=== PATIENT | female | born 1950 | race Caucasian/White ===

== ENCOUNTER 2020-05-13 11:56 | Outpatient (CLI) | payer MEDICARE, MEDICAID, SELFPAY ==
[2020-05-13 12:41] LABS: Hemoglobin A1C 5.5 % (<5.7)
[2020-05-13 12:47] LABS: Blood Urea Nitrogen 17 mg/dL (7-17); Calcium 9.2 mg/dL (8.4-10.2); Carbon Dioxide 29 mmol/L (22-30); Chloride 107 mmol/L (98-107); Estimated Glomerular Filt Rate > 60; Glucose 94 mg/dL (65-105); Sodium 141 mmol/L (137-145)
[2020-05-13 13:20] LABS: Vitamin D 25 Hydroxy 76.7 ng/mL
== END 2020-05-13 11:57 | disposition home or self-care (01) ==
LOC: ANHLAB 11:59
PROVIDERS: PCP Internal Medicine; Visit Provider Internal Medicine
DX: R73.9 Hyperglycemia, unspecified (principal); Z79.899 Other long term (current) drug therapy
CPT/HCPCS: 36415; 80048; 82306; 83036

== ENCOUNTER 2021-11-26 12:40 | Emergency (ER) | payer MEDICARE, MEDICAID, SELFPAY ==
--- NOTE | ~2021-11-26 | CT_ITS ---
EXAMINATION: CT abdomen pelvis w con DATE: 11/26/2021 18:39 INDICATION: Epigastric abdominal pain. Nausea and vomiting. Diarrhea. TECHNIQUE: Computed tomography (CT) of the abdomen and pelvis was performed with 100 mL Omnipaque 350 intravenous contrast. Automated exposure control and iterative reconstruction technique were employe d. The dose-length product was 485.51 mGy-cm. COMPARISON: CT abdomen and pelvis 11/27/2019 FINDINGS: The visualized portions of the lung bases demonstrate mild atelectasis. No pleural effusion . The heart size is normal. There are coronary artery calcifications. No pericardial effusion. There is a large sliding hiatal hernia. There are bilateral breast implants. There is diffuse hepatic steat osis. Pneumobilia is noted, likely secondary to central atrophy. There are changes of cholecystectomy . The spleen, pancreas, and adrenal glands are normal. There is cortical thinning of the kidneys. Pel maine floor relaxation is noted. There is diverticulosis of the colon without evidence of diverticuliti s. The appendix is not visualized. There are no pathologically enlarged lymph nodes. There is no free intraperitoneal fluid. There is severe lower lumbar spondylosis. IMPRESSION: 1. Large sliding hiatal hernia. 2. Diffuse hepatic steatosis. Reviewed, dictated and finalized at location A. ER AUT[employer]
--- NOTE | ~2021-11-26 | XR_ITS ---
EXAMINATION: XR chest 2V DATE: 11/26/2021 18:43 INDICATION: Epigastric abdominal pain. Nausea and vomiting and diarrhea. TECHNIQUE: Frontal and lateral views of the chest were obtained. COMPARISON: CT abdomen and pelvis 11/26/21 FINDINGS: There is mild atelectasis in the lower lung zones. No pleural effusion or pneumothorax. The heart size is normal. There is a large hiatal hernia. Breast implants are noted. Surgical clips in t he right upper quadrant are likely from cholecystectomy. IMPRESSION: 1. Mild atelectasis in the lower lung zones. 2. Large hiatal hernia. Reviewed, dictated and finalized at location A. N OPERATOR
[2021-11-26 13:33] VITALS: BP 151/85; PULSE 87; RESP 18; TEMP 36.9; O2SAT 97
[2021-11-26 17:26] VITALS: BP 158/105; PULSE 100; RESP 20; TEMP 36.7; O2SAT 96
--- NOTE | 2021-11-26 17:46 | ED.GENADULT ---
HPI - General Adult General Chief complaint: Nausea/Vomiting/Diarrhea Stated complaint: Vomiting Time Seen by Provider: 11/26/21 17:37 History of Present Illness HPI narrative: Patient is a 71-year-old female who comes into the ED today complaining of abdominal pain along with nausea, vomiting and diarrhea for the last 1 day. Also having a headache. Denies any fevers or any other symptoms or concerns. Notes a previous history of similar symptoms a few times before due to dehydration according to the patient. Denies any alcohol use or illicit drug use. She is not a diabetic. Related Data Allergies Allergy/AdvReac Type Severity Reaction Status Date / Time aripiprazole Allergy Mild Unknown Verified 11/27/19 16:32 pregabalin Allergy Mild Unknown Verified 11/27/19 16:32 cimetidine Allergy Unknown Unknown Verified 11/27/19 16:32 lansoprazole Allergy Unknown Unknown Verified 11/27/19 16:32 omeprazole Allergy Unknown Unknown Verified 11/27/19 16:32 pantoprazole Allergy Unknown Unknown Verified 11/27/19 16:32 ranitidine Allergy Unknown Unknown Verified 11/27/19 16:32 diphenhydramine AdvReac Mild Other Verified 11/27/19 16:32 nitrofurantoin AdvReac Mild Unknown Verified 11/27/19 16:32 oxybutynin AdvReac Unknown Verified 11/27/19 16:32 Review of Systems Constitutional: Constitutional: Reports as per HPI, Denies fever(s), Denies night sweats and Denies weakness Cardiovascular: Cardiovascular: Denies chest pain, Denies edema, Denies leg edema, Denies dyspnea and Denies orthopnea Respiratory: Respiratory: Denies cough and Denies dyspnea Gastrointestinal: Gastrointestinal: Reports abdominal pain, Denies constipation, Reports diarrhea, Reports nausea and Reports vomiting Comments: See HPI Musculoskeletal: Musculoskeletal: Denies abnormal gait, Denies back pain, Denies numbness and Denies tingling Neurologic: Denies Abnormal speech present, Denies abnormal gait, Denies numbness, Denies tingling and Denies weakness Comments: See HPI for headaches Psychiatric: Psychiatric: Denies homicidal ideation and Denies suicidal ideation [facility] Past Medical History Medical History (Updated 11/26/21 @ 19:29 by Aleks Lance PA-C) Fibromyalgia Gastroesophageal reflux Exam Const: General: cooperative, healthy appearing, comfortable, no acute distress, well developed, alert, awake and Physically active Orientation/consciousness: patient oriented x3 HENMT: Head: normal to inspection, normocephalic and atraumatic Ears: external ears normal General nose exam: Normal external nose present Other: Oropharynx clear. Eyes: Pupils: Equal, round and reactive pupils present EOM: EOMs intact bilaterally Neck: Neck: normal visual inspection Chest: Chest palpation & inspection: normal inspection of the chest and no tenderness Resp: Effort & Inspection: normal respiratory effort and able to speak in complete sentences Auscultation: clear to auscultation bilaterally Cardio: Rate: regular rate Rhythm: regular rhythm GI: Inspection: normal to inspection GI Palp: Yes abdominal tenderness (Tender to palpate over right upper quadrant, epigastric and LUQ) : General: Yes no CVA tenderness Back/Spine/Pelvis: Back: no CVA tenderness Skin: General skin exam: normal color and no rashes or lesions noted Lesions: no lesions Neuro: General: patient oriented x3, no focal motor deficits and CN's II-XI intact bilaterally Cranial nerves: Yes Equal, round and reactive pupils present Speech: No Abnormal speech present Extrem: General: normal to inspection and full ROM Psych: Appearance: grossly normal and well kempt Mental Status: mental status grossly normal Speech and movement: Normal speech and movement present Affect: normal affect Thought process: Normal thought process present Course Course Emergency Course: 1800 I am seeing this patient in a triage box as the emergency department is full of admits during this COVID-[address] sc
[2021-11-26 17:50] LABS: Basophils Percent Auto 0.6 % (0.2-1.2); Eosinophils Absolute Auto 0.1 K/mm3 (0-0.3); Eosinophils Percent Auto 1.1 % (0-4.4); Hemoglobin 16.1 g/dL (12.0-15.0); Immature Granulocyte Absolute 0.02 K/mm3 (0.00-0.031); Immature Granulocyte Percent A 0.4 % (0-0.5); Lymphocytes Absolute Auto 1.06 K/mm3 (0.9-3.2); Lymphocytes Percent Auto 22.4 % (18.3-44.2); Mean Corpuscular HGB Conc 32.9 g/dl (32-36); Mean Corpuscular Hemoglobin 29.8 pg (26-34); Mean Corpuscular Volume 90.7 fl (80-100); Mean Platelet Volume 10.2 fl (7.4-10.4); Monocytes Absolute Auto 0.5 K/mm3 (0.1-0.6); Monocytes Percent Auto 10.8 % (2.6-8.5); Neutrophils Absolute Auto 3.1 K/mm3 (1.3-6.7); Neutrophils Percent Auto 64.7 % (45.5-73.1); Platelet Count Result 160 k/mm3 (150-375); Red Cell Distribution Width 12.7 % (11.5-14.5); White Blood Count 4.7 K/mm3 (4.5-10.0)
[2021-11-26 17:59] LABS: Alanine Aminotransferase 38 U/L (4-35); Albumin Level 4.9 g/dL (3.5-5.1); Alkaline Phosphatase 107 U/L (38-126); Anion Gap 13 mmol/L (8-16); Aspartate Amino Transferase 77 U/L (14-36); Bilirubin,Total 0.9 mg/dL (0.2-1.3); Blood Urea Nitrogen 17 mg/dL (7-17); Calcium 10.2 mg/dL (8.4-10.2); Carbon Dioxide 27 mmol/L (22-30); Chloride 102 mmol/L (98-107); Estimated CRCL calculation 44 ml/min; Estimated Glomerular Filt Rate 55; Glucose 169 mg/dL (65-110); Potassium 4.1 mmol/L (3.4-5.0); Sodium 142 mmol/L (137-145)
[2021-11-26 18:26] LABS: Lipase 71 U/L (23-300)
[2021-11-26 18:36] LABS: Add Urine Microscopic? YES; Appearance Urine Clear (Clear); Bacteria Urine 3+ /hpf; Bilirubin Urine Negative (Negative); Blood Urine Negative (Negative); Color Urine Yellow (Yellow); Glucose Urine UA Negative (Negative); Ketones Urine Negative (Negative); Leukocyte Esterase Ur Trace LEU/UL (Negative); Mucus Urine Rare /lpf; Nitrate Urine Positive (Negative); Protein Urine Negative (Negative); Squamous Epithelial Cell Urine Moderate /hpf (Few); Urobilinogen Urine Negative mg/dL (<2.0)
[2021-11-26 19:40] VITALS: BP 145/100; PULSE 88; RESP 14; TEMP 36.7; O2SAT 97
[2021-11-26] MEDS: FAMOTIDINE 20 MG/2 ML VIAL IV PUSH (20:01)
[2021-11-26] MEDS: ONDANSETRON INJ 4 MG/2 ML VIAL IV PUSH (20:01)
[2021-11-26] MEDS: CEPHALEXIN 500 MG CAPSULE PO (20:02)
== END 2021-11-26 20:25 | disposition home or self-care (01) ==
PROVIDERS: Physician Assistant Medical; Emergency Provider Emergency Medicine; PCP Internal Medicine
DX: N39.0 Urinary tract infection, site not specified (principal); R11.2 Nausea with vomiting, unspecified; M79.7 Fibromyalgia; K21.9 Gastro-esophageal reflux disease without esophagitis; K44.9 Diaphragmatic hernia without obstruction or gangrene; K76.0 Fatty (change of) liver, not elsewhere classified
CPT/HCPCS: 36415; 71046; 74177; 80053; 81001; 83690; 85025; 87077; 87086; 87186; 96374; 96375; 99284; A9270; J2405; Q9967

== ENCOUNTER 2022-01-26 10:08 | Outpatient (CLI) | payer MEDICARE, MEDICAID, SELFPAY | END 2022-01-26 10:09 | disposition home or self-care (01) | PROVIDERS: PCP Internal Medicine; Visit Provider Internal Medicine | DX: H91.93 Unspecified hearing loss, bilateral (principal) | CPT/HCPCS: 99199 ==

== ENCOUNTER 2022-04-19 19:08 | Observation (INO) | payer MEDICARE, MEDICAID, SELFPAY ==
--- NOTE | ~2022-04-19 | NM_ITS ---
EXAMINATION: NM adele stress w perfusion DATE: 04/20/2022 15:59 INDICATION: Chest pain. TECHNIQUE: Rest images were obtained following intravenous administration of 10 mCi Tc99m tetrofosmin (Myoview). The patient was infused intravenously with Lexiscan (regadenoson). Then, 29.45 mCi Tc99m tetrofosmin (Myoview) was administered intravenously, and stress images were obtained. Data was recon structed into short axis and horizontal and vertical long axis SPECT images. Gated SPECT images were also obtained. COMPARISON: CT abdomen and pelvis 11/26/2021 FINDINGS: There is prominent breast attenuation. There is no definite reversible or fixed perfusion a bnormality to suggest ischemia or infarction. There is no segmental wall motion abnormality. Left v entricular ejection fraction measures >70%. IMPRESSION: 1. No definite ischemia or infarct. 2. Normal left ventricular ejection fraction measuring >70%. Reviewed, dictated and finalized at location A.
--- NOTE | ~2022-04-19 | XR_ITS ---
EXAMINATION: XR chest 2V 04/19/2022 19:30 INDICATION: Chest pain. Shortness of breath. PROCEDURE: 2 view chest COMPARISON: 11/26/2021 FINDINGS: The lungs are clear. The cardiomediastinal silhouette is within normal limits. There are no pleural effusions. There is no pneumothorax suspected. There is a moderate size hiatal hernia. T here are partially calcified breast implants. IMPRESSION: 1: NO ACUTE CARDIOPULMONARY DISEASE. Reviewed, dictated and finalized at location A.
--- NOTE | 2022-04-19 19:16 | ECG_ITS ---
Measurements Intervals Patriot Rate: 92 P: 35 NV: 180 QRS: 30 QRSD: 78 T: 55 QT: 361 QTc: 449 Interpretive Statements SINUS RHYTHM BASELINE ARTIFACT- I, III, AVR, AVL, AVF NORMAL ECG Electronically Signed On 04-19-2022 20:41:37 CDT by Colton Thomas D.O.
[2022-04-19 19:17] VITALS: BP 198/81; PULSE 93; RESP 18; TEMP 37; O2SAT 99
[2022-04-19 19:24] VITALS: O2SAT 98
[2022-04-19 19:29] LABS: Basophils Percent Auto 0.5 % (0.2-1.2); Eosinophils Absolute Auto 0.1 K/mm3 (0-0.3); Eosinophils Percent Auto 1.8 % (0-4.4); Hematocrit 36.1 % (37.0-47.0); Hemoglobin 11.9 g/dL (12.0-15.0); Immature Granulocyte Absolute 0.04 K/mm3 (0.00-0.031); Lymphocytes Absolute Auto 1.52 K/mm3 (0.9-3.2); Lymphocytes Percent Auto 38.6 % (18.3-44.2); Mean Corpuscular Hemoglobin 30.5 pg (26-34); Mean Corpuscular Volume 92.6 fl (80-100); Mean Platelet Volume 10.1 fl (7.4-10.4); Monocytes Absolute Auto 0.4 K/mm3 (0.1-0.6); Monocytes Percent Auto 9.4 % (2.6-8.5); Neutrophils Absolute Auto 1.9 K/mm3 (1.3-6.7); Neutrophils Percent Auto 48.7 % (45.5-73.1); Platelet Count Result 144 k/mm3 (150-375); Red Cell Distribution Width 13.1 % (11.5-14.5); White Blood Count 3.9 K/mm3 (4.5-10.0)
--- NOTE | 2022-04-19 19:35 | ED.CHESTPAIN ---
HPI - Chest Pain General Chief Complaint: Chest Pain Stated Complaint: cp left sided with sob Time Seen by Provider: 04/19/22 19:21 History of Present Illness HPI narrative: Patient is a 72-year-old female complaining of chest pain, left chest, tightness, 5 out of 10, nonradiating, intermittent worse when she lays down and exertion, accompanied by shortness of breath started approximately 1 month ago. Patient denies any abdominal pain, nausea, vomiting, diaphoresis, fever or chills. Related Data Allergies Allergy/AdvReac Type Severity Reaction Status Date / Time aripiprazole Allergy Mild Unknown Verified 11/27/19 16:32 pregabalin Allergy Mild Unknown Verified 11/27/19 16:32 cimetidine Allergy Unknown Unknown Verified 11/27/19 16:32 lansoprazole Allergy Unknown Unknown Verified 11/27/19 16:32 omeprazole Allergy Unknown Unknown Verified 11/27/19 16:32 pantoprazole Allergy Unknown Unknown Verified 11/27/19 16:32 ranitidine Allergy Unknown Unknown Verified 11/27/19 16:32 diphenhydramine AdvReac Mild Other Verified 11/27/19 16:32 nitrofurantoin AdvReac Mild Unknown Verified 11/27/19 16:32 oxybutynin AdvReac Unknown Verified 11/27/19 16:32 Review of Systems Review of Systems: All systems reviewed & are unremarkable except as noted in HPI and below Constitutional: Constitutional: Denies body ache(s), Denies chills, Denies excessive sweating, Denies fatigue, Denies fever(s), Denies headache(s), Denies lethargy, Denies malaise, Denies weakness and Denies weight loss Eyes: Eyes: Denies blurry vision, Denies change in vision and Denies loss of vision ENT: Denies dizziness, Denies ear discharge, Denies headache(s), Denies lip swelling, Denies epistaxis, Denies nasal congestion, Denies neck pain, Denies throat swelling and Denies tongue swelling Cardiovascular: Cardiovascular: Denies diaphoresis, Denies rapid heart rate, Denies edema, Denies irregular heart rhythm, Denies lightheadedness and Denies palpitations Respiratory: Respiratory: Denies chest congestion, Denies cough and Denies hemoptysis Gastrointestinal: Gastrointestinal: Denies abdominal pain, Denies melena, Denies hematochezia, Denies diarrhea, Denies nausea, Denies vomiting and Denies hematemesis Musculoskeletal: Musculoskeletal: Denies abnormal gait, Denies deformity, Denies joint swelling, Denies limited range of motion, Denies neck pain and Denies numbness Neurologic: Denies Abnormal speech present, Denies abnormal gait, Denies confusion, Denies dizziness, Denies headache(s), Denies focal weakness, Denies loss of vision, Denies numbness, Denies Other visual disturbances, Denies Sensory deficit (Neuro) and Denies weakness Psychiatric: Psychiatric: Denies confusion, Denies depression, Denies auditory hallucinations, Denies homicidal ideation and Denies suicidal ideation Endocrine: Endocrine: Denies cold intolerance, Denies excessive sweating, Denies fatigue, Denies heat intolerance and Denies palpitations Hematologic/Lymphatic: Hematologic/Lymphatic: Denies easy bleeding and Denies easy bruising Allergic/Immunologic: Allergic/Immunologic: Denies lip swelling, Denies throat swelling and Denies tongue swelling PMFSH Past Medical History Medical History (Updated 04/19/22 @ 21:04 by Giorgi Gomes MD) Fibromyalgia Gastroesophageal reflux Comments Past medical history: None Family history: Negative for coronary artery disease or SD Social history: Non-smoker no EtOH or drug use Exam Const: General: cooperative, healthy appearing, comfortable, no acute distress, well developed, alert and awake; No confusion Orientation/consciousness: oriented to person, oriented to place, oriented to time, patient oriented x3 and No confusion Limitations: no limitations HENMT: Head: normal to inspection, normocephalic and atraumatic Ears: hearing grossly normal bilaterally, TM normal on the right and TM normal on the left General nose exam: Normal external nose present, Normal nares presen
[2022-04-19 19:38] LABS: Alanine Aminotransferase 17 U/L (6-35); Albumin Level 3.7 g/dL (3.5-5.1); Alkaline Phosphatase 97 U/L (38-126); Anion Gap 8 mmol/L (8-16); Aspartate Amino Transferase 38 U/L (14-36); Bilirubin,Total 0.6 mg/dL (0.2-1.3); Blood Urea Nitrogen 18 mg/dL (7-17); Calcium 8.6 mg/dL (8.4-10.2); Carbon Dioxide 24 mmol/L (22-30); Chloride 110 mmol/L (98-107); Estimated CRCL calculation 49 ml/min; Estimated Glomerular Filt Rate > 60; Glucose 148 mg/dL (65-110); Lipase 191 U/L (23-300); Potassium 3.5 mmol/L (3.4-5.0); Sodium 142 mmol/L (137-145)
[2022-04-19 19:40] LABS: INR 1.1; Partial Thromboplastin Time 30.7 SECONDS (22.3-36.8); Prothrombin Time 13.5 Seconds (11.1-14.7)
[2022-04-19] MEDS: ASPIRIN 81 MG CHEWABLE TABLET 324 MG PO (19:48)
[2022-04-19 19:49] LABS: Troponin I < 0.012 ng/mL (0.000-0.034)
--- NOTE | 2022-04-19 19:52 | PC.NURSE ---
called lab and spoke to Nilson at 1951 to add on a D dimer and BNP
[2022-04-19 19:58] LABS: D Dimer 0.31 ug/mL (<0.48)
[2022-04-19 20:06] VITALS: BP 167/82; PULSE 86; RESP 20; O2SAT 95
[2022-04-19 20:13] LABS: NT Pro B Type Natriuretic Pept 62 pg/mL (5-100)
[2022-04-19 21:15] VITALS: BP 150/74; PULSE 76; RESP 20; O2SAT 97
--- NOTE | 2022-04-19 22:29 | PM.IMHP ---
H&P: HPI History of Present Illness Date/Time: Patient was placed observation status for expected length of stay less than 23 hours for management, will plan to re-evaluate tomorrow for improvement. 04/19/22 22:29 Chief Complaint: Chest pain Narrative: Ms. Oakes is a 72-year-old female who presented emergency room with complaints of chest pain that started this afternoon. Patient states she was lying on her couch and she had a sharp pain above her left breast and when she got up and walked the pain went away. Patient states the pain lasted for less than 5 minutes, but she is unsure of exactly how long it did last. Patient denies any associated shortness of breath, nausea, vomiting, or diaphoresis. Patient states the pain did not radiate to any other area. Patient states that she has also had shortness of breath ?for a while?. Patient states that she believes it has been approximately 1 month and she has seen her primary care provider for this problem. Patient states that her primary care provider did do an EKG and blood work and she is to have other workup performed, but she cannot recall what she has to have done at this time. It is patient states that she typically has dyspnea exertion. Patient denies any cough, fever, chills, or sputum production. Patient states she was a previous smoker for approximately 10 years she smoked 3 packs cigarettes a day. Patient states she does have a known history of hypertension, dyslipidemia, chronic back pain, and ADHD. Review of Systems Review of Systems: A 12 point review of systems was completed patient all pertinent positive and negative per HPI the remainder are unremarkable. [facility] Past Medical History Medical History (Updated 04/19/22 @ 22:36 by Ami Neal APRN) ADHD Dyslipidemia Fibromyalgia Gastroesophageal reflux Hypertension Surgical History Surgical History (Updated 04/19/22 @ 22:32 by Ami Neal APRN) History of appendectomy History of bilateral carpal tunnel release History of cholecystectomy History of partial hysterectomy Family History Family History (Updated 04/19/22 @ 22:33 by Ami Neal APRN) Sibling Cerebrovascular accident Social History Social History (Updated 04/19/22 @ 22:33 by Ami Neal APRN) Smoking packs per day: 3 Smoking cigarettes per day: 60.0 Years smoked: 10 Smoking pack-years: 30.00 Smoking status: Former smoker Meds Home Medications and Allergies Home Medications Medication Instructions Recorded Confirmed Type ondansetron 4 mg disintegrating 4 mg PO Q8H PRN nausea and 11/27/19 Rx tablet vomiting 3 days #10 tabs cefpodoxime 200 mg tablet 200 mg PO Q12H #14 tabs 11/26/21 Rx famotidine 20 mg tablet (Pepcid) 20 mg PO BID PRN abdominal pain 11/26/21 Rx #10 tabs ondansetron HCl 4 mg tablet 4 mg PO Q6H PRN nausea and 11/26/21 Rx (Zofran) vomiting #14 tabs Allergies Allergy/AdvReac Type Severity Reaction Status Date / Time aripiprazole Allergy Mild Unknown Verified 11/27/19 16:32 pregabalin Allergy Mild Unknown Verified 11/27/19 16:32 cimetidine Allergy Unknown Unknown Verified 11/27/19 16:32 lansoprazole Allergy Unknown Unknown Verified 11/27/19 16:32 omeprazole Allergy Unknown Unknown Verified 11/27/19 16:32 pantoprazole Allergy Unknown Unknown Verified 11/27/19 16:32 ranitidine Allergy Unknown Unknown Verified 11/27/19 16:32 diphenhydramine AdvReac Mild Other Verified 11/27/19 16:32 nitrofurantoin AdvReac Mild Unknown Verified 11/27/19 16:32 oxybutynin AdvReac Unknown Verified 11/27/19 16:32 Vital Signs Vital Signs - 24 hr 04/19/22 19:17 04/19/22 19:24 04/19/22 20:06 Temperature 37.0 C Pulse Rate 93 86 Respiratory Rate 18 20 Blood Pressure 198/81 H 167/82 H Pulse Oximetry 99 98 95 Oxygen Delivery Room Air Room Air 04/19/22 21:15 Temperature Pulse Rate 76 Respiratory Rate 20 Blood Pressure 150/74 H Pulse Oximetry 97 Oxygen Delivery
[2022-04-19 22:37] LABS: Troponin I < 0.012 ng/mL (0.000-0.034)
[2022-04-19 22:46] VITALS: BP 164/84; PULSE 78; RESP 18; TEMP 36.4; O2SAT 100
[2022-04-19 22:47] VITALS: BMI 32.6
--- NOTE | 2022-04-19 22:49 | ADMGEN ---
This patient, Neida Oakes, was admitted to IMU Room 202-01. Patient/family oriented to hospital policies and general routines including ID bracelet, bed and alarms, visiting hours, pain management, procedures, bathroom and other care routines, personal items, smoking policy, room service/diet, and visiting hours. Information on how to activate the Rapid Response Team has been discussed. Patient/Family are encouraged to report perceived risks to care and to ask questions if they do not understand what they are told or what they should do.
[2022-04-20] VITALS (16 sets, daily range): BP systolic 131–178; BP diastolic 59–85; PULSE 68–93; RESP 15–20; TEMP 36.1–36.7; O2SAT 96–100
[2022-04-20 01:54] LABS: Troponin I < 0.012 ng/mL (0.000-0.034)
[2022-04-20 05:00] LABS: Basophils Percent Auto 0.6 % (0.2-1.2); Eosinophils Absolute Auto 0.1 K/mm3 (0-0.3); Eosinophils Percent Auto 2.5 % (0-4.4); Hematocrit 34.2 % (37.0-47.0); Hemoglobin 11.1 g/dL (12.0-15.0); Immature Granulocyte Absolute 0.04 K/mm3 (0.00-0.031); Immature Granulocyte Percent A 1.1 % (0-0.5); Lymphocytes Absolute Auto 1.63 K/mm3 (0.9-3.2); Lymphocytes Percent Auto 45.4 % (18.3-44.2); Mean Corpuscular HGB Conc 32.5 g/dl (32-36); Mean Corpuscular Hemoglobin 30.6 pg (26-34); Mean Corpuscular Volume 94.2 fl (80-100); Mean Platelet Volume 10.2 fl (7.4-10.4); Monocytes Absolute Auto 0.4 K/mm3 (0.1-0.6); Monocytes Percent Auto 11.4 % (2.6-8.5); Neutrophils Absolute Auto 1.4 K/mm3 (1.3-6.7); Platelet Count Result 129 k/mm3 (150-375); Red Blood Count 3.63 M/mm3 (4.2-5.4); Red Cell Distribution Width 13.2 % (11.5-14.5); White Blood Count 3.6 K/mm3 (4.5-10.0)
[2022-04-20 05:10] LABS: Hemoglobin A1C 5.2 % (<5.7)
[2022-04-20 05:11] LABS: Alanine Aminotransferase 14 U/L (6-35); Albumin Level 3.1 g/dL (3.5-5.1); Alkaline Phosphatase 82 U/L (38-126); Anion Gap 5 mmol/L (8-16); Aspartate Amino Transferase 32 U/L (14-36); Bilirubin,Total 0.7 mg/dL (0.2-1.3); Blood Urea Nitrogen 16 mg/dL (7-17); Calcium 8.2 mg/dL (8.4-10.2); Carbon Dioxide 26 mmol/L (22-30); Chloride 111 mmol/L (98-107); Estimated CRCL calculation 49 ml/min; Estimated Glomerular Filt Rate > 60; Glucose 111 mg/dL (65-110); Magnesium 2.1 mg/dL (1.6-2.3); Sodium 142 mmol/L (137-145)
[2022-04-20 08:09] LABS: Folic Acid > 20.0 ng/mL (2.76->20)
--- NOTE | 2022-04-20 08:12 | EST_ITS ---
Patient Info Name: Neida Oakes Age: 72 years : 1950 Gender: Female Ht: 62 in Wt: 178 lbs BSA: 1.91 m2 HR: 63 bpm BP: 147 / 87 mmHg Heart Rhythm: Sinus Rhythm Exam Date: 04/20/2022 2:44 PM Exam Location: [facility] Stress Patient Status: Outpatient Admit Date: 04/19/2022 Staff Ordering Physician: Nir Richey MD Attending Provider: Lyndsey Ziegler DO Exercise Technologist: Gema Forrester CT Nurse: ramon santana Exam Type: CA stress adele w NM Study Info Indications R07.9 - Chest pain, unspecified A regadenoson stress test was performed. Summary 1. Normal sinus rhythm - normal ECG. 2. No abnormal ST/T wave changes with exercise. 3. Clinically and electrocardiographically unremarkable Lexiscan stress test. 4. Myocardial perfusion imaging results to be dictated by Radiology. Protocol: Lexiscan Stress ECG Details Stage: REST Duration (min): 0 min : 50 sec HR (bpm): 66 SBP (mmHg): 147 DBP (mmHg): 87 Stage: REST Duration (min): 5 min : 46 sec HR (bpm): 71 SBP (mmHg): 147 DBP (mmHg): 87 Stage: STAGE 1 Duration (min): 1 min : 0 sec HR (bpm): 92 SBP (mmHg): 155 DBP (mmHg): 72 Stage: RECOVERY Duration (min): 1 min : 0 sec HR (bpm): 97 SBP (mmHg): 155 DBP (mmHg): 72 Stage: RECOVERY Duration (min): 2 min : 0 sec HR (bpm): 96 SBP (mmHg): 155 DBP (mmHg): 72 Stage: RECOVERY Duration (min): 3 min : 0 sec HR (bpm): 95 SBP (mmHg): 176 DBP (mmHg): 74 Stage: RECOVERY Duration (min): 3 min : 9 sec HR (bpm): 95 SBP (mmHg): 176 DBP (mmHg): 74 Rest HR: 71 bpm Peak HR: 98 bpm Rest Sys BP: 147 mmHg Peak Sys BP: 176 mmHg Max Pred HR: 148 bpm % Max Pred HR: 66 % Target HR: 126 bpm Max RPP: 17,248 bpm*mmHg BP Response: Normal blood pressure response Cardiac Symptoms: Shortness of breath Total Time: 1 min : 0 sec Rest Sow BP: 87 mmHg Peak Sow BP: 74 mmHg Total Dose: 0.4 mg Resting ECG Normal sinus rhythm - normal ECG. Stress ECG No abnormal ST/T wave changes with exercise. Report Signatures
[2022-04-20] MEDS: GABAPENTIN 300 MG CAPSULE 600 MG PO ×3 (09:30→17:20)
[2022-04-20] MEDS: lisinopriL 20 MG TABLET PO (09:31)
[2022-04-20] MEDS: ASPIRIN 81 MG CHEWABLE TABLET PO (09:31)
[2022-04-20] MEDS: ATORVASTATIN 10 MG TABLET PO (09:31)
[2022-04-20] MEDS: MELOXICAM 7.5 MG TABLET 15 MG PO (09:31)
[2022-04-20] MEDS: FLUoxetine HCL 10 MG CAPSULE PO (09:31)
[2022-04-20] MEDS: ENOXAPARIN 40 MG/0.4 ML SYRINGE SUB-Q (09:33)
--- NOTE | 2022-04-20 11:00 | PHAR ---
The patient's home med of Rabeprazole 20 mg tablet,delayed release (DR/EC) has been verified.
--- NOTE | 2022-04-20 12:50 | PM.IMPN ---
Progress Note: A&P Assessment and Plan (1) Chest pain: Code(s): R07.9 - Chest pain, unspecified Status: Acute (2) Shortness of breath: Code(s): R06.02 - Shortness of breath Status: Acute (3) Hypertension: Code(s): I10 - Essential (primary) hypertension Status: Acute (4) Dyslipidemia: Code(s): E78.5 - Hyperlipidemia, unspecified Status: Acute (5) Fibromyalgia: Code(s): M79.7 - Fibromyalgia Status: Acute (6) Pancytopenia: Code(s): D61.818 - Other pancytopenia Status: Acute Plan 72-year-old female hypertension fibromyalgia who presents emerged complaints of chest pain. She has also had shortness of breath for the past month that is being evaluated by her primary care doctor. Blood pressure was elevated 198/81 on admission. She has a mild pancytopenia that is persistent on recheck. PT, PTT and D-dimer all were normal. CMP was unrevealing. Troponin negative x3. Chest x-ray was reviewed personally and was clear. EKG was reviewed personally and was normal. Will resume her home medications. Continue her lisinopril. May need to adjust her antihypertensive medications if she continues to have elevated blood pressure. Lipitor resume for her hyperlipidemia. Given the pancytopenia, we checked a B12/folate level both of which were normal. Pancytopenia could be related to some her medications. Continue aspirin. Make NPO for Lexiscan stress test. Although her chest pain is not consistent with coronary disease and that her EKG was normal and troponins negative, will proceed with Lexiscan stress test to exclude underlying cardiac etiology to explain her shortness of breath. Will check ApneaLink at night as well if she spends the evening. DVT Prophylaxis: Lovenox Code Status: Full Subjective Date/time seen: 04/20/22 12:50 Interval history: 72yo female with GERD and fibromyalgia who presents to the ED with complaints of chest pain. She also has SOB but this has been present for about 1 month. She states that her shortness of breath is like her ?gasping for air?. She does snore. She has snorted that has woken her up. No cough or fever. No pedal edema but does complain of her feet being swollen at times. She uses 1 pillow when she sleeps. She is unsure if the chest pain was pleuritic. Chest pain improved when she was up walking. Exam Narrative: AF 97.5 176/85 81 18 96% ra Gen - NARD Chest - CTA bilaterally, nml RR CV - RRR S1/S2. no murmur Abd - Soft, NT/ND, Positive BS Ext - No pedal edema Psych - mildly anxious Skin - Warm and dry Objective Data Vital Signs Vital Signs: Vital Signs - 24 hr 04/19/22 19:17 04/19/22 19:24 04/19/22 20:06 Temperature 98.6 F Pulse Rate 93 86 Respiratory Rate 18 20 Blood Pressure 198/81 H 167/82 H Pulse Oximetry 99 98 95 Oxygen Delivery Room Air Room Air 04/19/22 21:15 04/19/22 22:46 04/20/22 00:00 Temperature 97.6 F Pulse Rate 76 78 68 Respiratory Rate 20 18 Blood Pressure 150/74 H 164/84 H Pulse Oximetry 97 100 Oxygen Delivery 04/20/22 00:00 04/20/22 01:59 04/20/22 04:00 Temperature Pulse Rate 68 79 75 Respiratory Rate Blood Pressure Pulse Oximetry Oxygen Delivery 04/20/22 04:00 04/20/22 04:00 04/20/22 05:37 Temperature 96.9 F L Pulse Rate 75 79 69 Respiratory Rate 18 15 Blood Pressure 134/59 L Pulse Oximetry 100 98 Oxygen Delivery Room Air 04/20/22 08:00 04/20/22 08:00 04/20/22 10:00 Temperature 97.5 F L Pulse Rate 74 83 84 Respiratory Rate 18 Blood Pressure 146/78 H Pulse Oximetry 96 Oxygen Delivery 04/20/22 12:00 Temperature 97.5 F L Pulse Rate 81 Respiratory Rate 18 Blood Pressure 176/85 H Pulse Oximetry 96 Oxygen Delivery Intake/Output Intake/Output: Intake & Output 04/17/22 04/18/22 04/19/22 04/20/22 23:59 23:59 23:59 23:59 Intake Total 300 Output Total 400 Balance -100
[2022-04-20] MEDS: DOXEPIN HCL 25 MG CAPSULE 100 MG PO (17:21)
[2022-04-20] MEDS: clonazePAM (*CRX) 0.5 MG TABLET 1 MG PO (17:21)
[2022-04-20] MEDS: risperiDONE 0.25 MG TABLET PO (17:23)
[2022-04-21] VITALS (7 sets, daily range): BP systolic 143–149; BP diastolic 70–84; PULSE 63–114; RESP 16–18; TEMP 36.9–37.3; O2SAT 97–99
[2022-04-21 06:34] LABS: Basophils Percent Auto 0.7 % (0.2-1.2); Eosinophils Absolute Auto 0.1 K/mm3 (0-0.3); Eosinophils Percent Auto 2.3 % (0-4.4); Hematocrit 36.3 % (37.0-47.0); Hemoglobin 11.7 g/dL (12.0-15.0); Immature Granulocyte Absolute 0.04 K/mm3 (0.00-0.031); Immature Granulocyte Percent A 1.3 % (0-0.5); Lymphocytes Percent Auto 39.9 % (18.3-44.2); Mean Corpuscular HGB Conc 32.2 g/dl (32-36); Mean Corpuscular Hemoglobin 30.2 pg (26-34); Mean Corpuscular Volume 93.8 fl (80-100); Mean Platelet Volume 9.4 fl (7.4-10.4); Monocytes Absolute Auto 0.3 K/mm3 (0.1-0.6); Monocytes Percent Auto 10.3 % (2.6-8.5); Neutrophils Absolute Auto 1.4 K/mm3 (1.3-6.7); Neutrophils Percent Auto 45.5 % (45.5-73.1); Platelet Count Result 122 k/mm3 (150-375); Red Blood Count 3.87 M/mm3 (4.2-5.4)
[2022-04-21 06:44] LABS: Anion Gap 3 mmol/L (8-16); Blood Urea Nitrogen 13 mg/dL (7-17); Calcium 8.7 mg/dL (8.4-10.2); Carbon Dioxide 29 mmol/L (22-30); Chloride 109 mmol/L (98-107); Estimated CRCL calculation 49 ml/min; Estimated Glomerular Filt Rate > 60; Glucose 106 mg/dL (65-110); Potassium 4.3 mmol/L (3.4-5.0); Sodium 141 mmol/L (137-145)
[2022-04-21] MEDS: ASPIRIN 81 MG CHEWABLE TABLET PO (08:56)
[2022-04-21] MEDS: FLUoxetine HCL 10 MG CAPSULE PO (08:57)
[2022-04-21] MEDS: MELOXICAM 7.5 MG TABLET 15 MG PO (08:57)
[2022-04-21] MEDS: GABAPENTIN 300 MG CAPSULE 600 MG PO (08:57)
[2022-04-21] MEDS: ATORVASTATIN 10 MG TABLET PO (08:58)
[2022-04-21] MEDS: lisinopriL 20 MG TABLET PO (08:59)
[2022-04-21] MEDS: ENOXAPARIN 40 MG/0.4 ML SYRINGE SUB-Q (08:59)
--- NOTE | 2022-04-21 11:09 | PM.DS ---
DS: Admitting Diagnosis Discharge Date 04/21/2022 Admitting Diagnosis Chest Pain DS: Discharge Diagnosis Discharge Diagnosis (1) Chest pain: Code(s): R07.9 - Chest pain, unspecified Status: Acute (2) Shortness of breath: Code(s): R06.02 - Shortness of breath Status: Acute (3) Hypertension: Code(s): I10 - Essential (primary) hypertension Status: Acute (4) Dyslipidemia: Code(s): E78.5 - Hyperlipidemia, unspecified Status: Acute (5) Fibromyalgia: Code(s): M79.7 - Fibromyalgia Status: Acute (6) Pancytopenia: Code(s): D61.818 - Other pancytopenia Status: Acute Plan 72-year-old female hypertension fibromyalgia who presents emerged complaints of chest pain. She has also had shortness of breath for the past month that is being evaluated by her primary care doctor. Blood pressure was elevated 198/81 on admission. She has a mild pancytopenia that is persistent on recheck. PT, PTT and D-dimer all were normal. CMP was unrevealing. Troponin negative x3. Chest x-ray was reviewed personally and was clear. EKG was reviewed personally and was normal. Will resume her home medications. Continue her lisinopril. May need to adjust her antihypertensive medications if she continues to have elevated blood pressure. Lipitor resume for her hyperlipidemia. Given the pancytopenia, we checked a B12/folate level both of which were normal. Pancytopenia could be related to some her medications. Continue aspirin. Make NPO for Lexiscan stress test. Although her chest pain is not consistent with coronary disease and that her EKG was normal and troponins negative, will proceed with Lexiscan stress test to exclude underlying cardiac etiology to explain her shortness of breath. Will check [facility] at night as well if she spends the evening. DVT Prophylaxis: Lovenox Code Status: Full DS: Summary Hospital Course Reason for hospitalization: Chest pain Hospital Course: 72 years old female was admitted with complains of chest pain. Patient was admitted in the hospital and rule out IA protocol was carried out. Cardiology was consulted and Lexiscan was performed, patient lexican was negative. Today patient feeling better. patient discharged home in stable condition patient follow-up with primary care and Cardiology outpatient next week Status at Discharge Cognitive/behavioral status at discharge: Stable Time Spent with Patient Time attestation: Total time spent providing and/or coordinating discharge services: Time spent: Less than 30 minutes Exam Narrative: AF 97.5 176/85 81 18 96% ra Gen - NARD Chest - CTA bilaterally, nml RR CV - RRR S1/S2. no murmur Abd - Soft, NT/ND, Positive BS Ext - No pedal edema Psych - mildly anxious Skin - Warm and dry DS: Data Data Completed and Pending Labs on day of discharge: Labs from last 24 hours 04/21/22 04/21/22 04/20/22 06:27 06:27 21:41 WBC 3.0 L RBC 3.87 L Hgb 11.7 L Hct 36.3 L MCV 93.8 MCH 30.2 MCHC 32.2 RDW 13.0 Plt Count 122 L MPV 9.4 Immature Gran % (Auto) 1.3 H Neut % (Auto) 45.5 Lymph % (Auto) 39.9 Glynn % (Auto) 10.3 H Eos % (Auto) 2.3 Baso % (Auto) 0.7 Lymph # (Auto) 1.20 Glynn # (Auto) 0.3 Eos # (Auto) 0.1 Baso # (Auto) 0.0 Abs Immat Gran (auto) 0.04 H Absolute Neuts (auto) 1.4 Absolute Nucleated RBC 0.0 Nucleated RBC % 0.0 Sodium 141 Potassium 4.3 Chloride 109 H Carbon Dioxide 29 Anion Gap 3 L BUN 13 Creatinine 0.90 Estim Creat Clear Calc 49 Estimated GFR > 60 Glucose 106 Calcium 8.7 Total Protein Albumin Ctgny-9-Hmsrioicg Wsotb-0-Qltjglprf Rytq-5-Rbwosubx Cjtn-9-Tcdfysff Gamma Globulins Abnorm Protein Band 1 Abnorm Protein Band 3 PEP Interpretation TSH (Reflex) Ur Random Creatinine Pending U Random Total Protein Pending Protein/
--- NOTE | 2022-04-21 12:57 | PC.NURSE ---
Patient discharged to home today. Education was provided on follow up and medications. Patient had no further questions at this time.
[2022-04-24 23:14] LABS: Albumin 3.5 g/dL (3.8-4.8); Alpha 1 Globulin 0.3 g/dL (0.2-0.3); Alpha 2 Globulin 0.7 g/dL (0.5-0.9); Beta 1 Globulin 0.4 g/dL (0.4-0.6); Gamma Globulin 0.9 g/dL (0.8-1.7); Protein, Total 6.2 g/dL (6.1-8.1)
== END 2022-04-21 12:30 | disposition home or self-care (01) ==
LOC: ANHED 21:04 → ANHIMU 22:44
PROVIDERS: Family Medicine; Internal Medicine; Nurse Practitioner Adult Health; Admitting Provider Student in an Organized Health Care Education/Training Program; Emergency Provider Emergency Medicine; PCP Internal Medicine; Visit Provider Internal Medicine
DX: R07.9 Chest pain, unspecified (principal); R06.02 Shortness of breath; K21.9 Gastro-esophageal reflux disease without esophagitis; Z87.891 Personal history of nicotine dependence; I10 Essential (primary) hypertension; E78.5 Hyperlipidemia, unspecified; M54.9 Dorsalgia, unspecified; G89.29 Other chronic pain; F90.9 Attention-deficit hyperactivity disorder, unspecified type; M79.7 Fibromyalgia; D61.818 Other pancytopenia
CPT/HCPCS: 36415; 71046; 78452; 80048; 80053; 82570; 82607; 82746; 83036; 83690; 83735; 83880; 84155; 84156; 84165; 84166; 84443; 84484; 85025; 85380; 85610; 85730; 86334; 86335; 93005; 93017; 94762; 96372; 99285; A9270; A9502; G0378; J0280; J1650; J2785

== ENCOUNTER 2022-05-24 08:38 | Outpatient (CLI) | payer MEDICARE, MEDICAID, SELFPAY | END 2022-05-24 08:39 | disposition home or self-care (01) | LOC: ANHAUDIO 08:39 | PROVIDERS: PCP Internal Medicine; Visit Provider Internal Medicine | DX: H91.90 Unspecified hearing loss, unspecified ear (principal) | CPT/HCPCS: 92557; 92567 ==

== ENCOUNTER 2022-06-18 11:46 | Outpatient (CLI) | payer MEDICARE, MEDICAID, SELFPAY ==
--- NOTE | 2022-06-18 | ECHO_ITS ---
Patient Info Name: Neida Oakes Age: 72 years : 1950 Gender: Female Ht: 62 in Wt: 185 lbs BSA: 1.95 m2 HR: 90 bpm BP: 121 / 78 mmHg Heart Rhythm: Sinus Rhythm Exam Date: 06/18/2022 2:04 PM Exam Location: [facility] Patient Status: Outpatient Admit Date: 06/18/2022 Staff Ordering Physician: Sheyla, Abram Argueta MD Alumni Relations Manager: Brent Collins, RDCS, RT Attending Provider: Sheyla, Abram Argueta MD Referring Physician: Sheyla TRAN; Exam Type: CA echo doppler color flow Study Info Indications R06.00 - Dyspnea, unspecified Complete two-dimensional, color flow and Doppler transthoracic echocardiogram is performed. Strain analysis performed. Summary 1. Complete two-dimensional, color flow and Doppler transthoracic echocardiogram is performed. 2. Normal left ventricular size thickness and systolic function. 3. Trivial amount of aortic valve regurgitation. Left Ventricle Left ventricular chamber dimension is normal. Left ventricular systolic function is normal, estimated at 60-65%. The left ventricular diastolic function is normal. Right Ventricle Right ventricular chamber dimension is normal. Left Atria Left atrial chamber dimension is normal. Right Atria Right atrial chamber dimension is normal. Aortic Valve The aortic valve is normal. There is trace aortic valve regurgitation. Pulmonic Valve The pulmonic valve is normal. Mitral Valve The mitral valve has normal leaflets. Tricuspid Valve The tricuspid valve leaflets are normal. Pericardium/Pleural The pericardium appears normal. Aorta The aortic root size at the sinus of Valsalva is normal. Left Ventricular Outflow Tract Name Value Normal LVOT 2D LVOT Diameter 2.0 cm LVOT Doppler LVOT Peak Gradient 5 mmHg LVOT Mean Gradient 2 mmHg LVOT VTI 17 cm LVOT VTI/AV VTI Ratio 0.7 LVOT Stroke Volume 53 ml LVOT CO 4.5 l/min LVOT CI 2.3 l/min/m2 Mitral Valve Name Value Normal MV Doppler MV Decel Jessamine 233 cm/s2 MV PHT 69 ms MV Area (PHT) 3.2 cm2 4.0-5.0 MV Diastolic Function MV E Peak Velocity 55 cm/s MV A Peak Velocity 69 cm/s MV E/A 0.8 MV Decel Time 237 ms MV Annular TDI MV E/e' (Septal) 10.3 <=8.0 MV E/e' (Lateral) 4.5
[2022-06-18 12:30] LABS: Basophils Percent Auto 0.7 % (0.2-1.2); Eosinophils Absolute Auto 0.1 K/mm3 (0-0.3); Eosinophils Percent Auto 2.1 % (0-4.4); Hematocrit 39.8 % (37.0-47.0); Hemoglobin 12.8 g/dL (12.0-15.0); Immature Granulocyte Percent A 1.8 % (0-0.5); Lymphocytes Absolute Auto 1.28 K/mm3 (0.9-3.2); Lymphocytes Percent Auto 22.5 % (18.3-44.2); Mean Corpuscular HGB Conc 32.2 g/dl (32-36); Mean Corpuscular Hemoglobin 29.8 pg (26-34); Mean Corpuscular Volume 92.6 fl (80-100); Mean Platelet Volume 10.5 fl (7.4-10.4); Monocytes Absolute Auto 0.5 K/mm3 (0.1-0.6); Monocytes Percent Auto 9.3 % (2.6-8.5); Neutrophils Absolute Auto 3.6 K/mm3 (1.3-6.7); Neutrophils Percent Auto 63.6 % (45.5-73.1); Platelet Count Result 149 k/mm3 (150-375); Red Cell Distribution Width 12.8 % (11.5-14.5); White Blood Count 5.7 K/mm3 (4.5-10.0)
--- NOTE | 2022-06-18 16:43 | WPDPFTINT ---
PFT Procedure Performed PFT Procedure Performed Plethysmography (Lung Vol) Diffusing Cap (DLCO) Flow Vol Loop Spirometry w/o Bronchodil PFT Interpretation This is a pulmonary function test with spirometry, plethysmography and diffusing capacity. The test was performed and results interpreted in accordance with the 2019 and 2005 ATS/ERS Task Force guidelines respectively using the Global Lung Function Initiative-2012 reference equations. Patient demonstrated good effort and cooperation. Reproducibility criteria were met. The quality of the spirometry maneuver was Grade A. Findings: Spirometry: The contour the inspiratory and expiratory flow tracing are normal. The FVC is 2.12 L, 82% predicted. The FEV1 is 1.59 L, 80% predicted. The FEV1: FVC ratio 75%. Plethysmography: The total lung capacity is 4.09 L, 87% predicted. The functional residual capacity is 2.30 L, 85% predicted. The residual volume is 1.98 L, 93% predicted. Diffusing capacity: The diffusion capacity unadjusted for hemoglobin and carboxyhemoglobin is 14.3, 74% predicted. The diffusing capacity adjusted for alveolar volume is 4.52, 104% predicted. Impression: The spirometry is normal without evidence of an obstructive abnormality. The lung volumes are normal. The diffusing capacity is normal. There are no prior studies for comparison
== END 2022-06-18 11:47 | disposition home or self-care (01) ==
LOC: ANHPFT 11:47
PROVIDERS: PCP Internal Medicine; Visit Provider Internal Medicine
DX: R06.00 Dyspnea, unspecified (principal); D61.818 Other pancytopenia
CPT/HCPCS: 36415; 85025; 93306; 94375; 94726; 94729

== ENCOUNTER 2022-08-29 15:53 | Inpatient (IN) | payer MEDICARE, MEDICAID, SELFPAY ==
--- NOTE | ~2022-08-29 | XR_ITS ---
XR chest 2V 08/29/2022 16:54 Indication: Worsening shortness of breath. Low blood pressure. Procedure: PA and lateral views of the chest Comparison: 04/19/2022 Findings: There are patchy developing bilateral infiltrates, consistent with pneumonia. There are par tially calcified bilateral breast implants. Small hiatal hernia. Heart size normal. No pleural effusi on or pneumothorax. Impression: 1: Developing patchy bilateral airspace disease, compatible with pneumonia. Reviewed, dictated and finalized at location B. Impression: 1: Developing patchy bilateral airspace disease, compatible with pneumonia.
--- NOTE | ~2022-08-29 | XR_ITS ---
EXAMINATION: XR knee RT 3V DATE: 08/31/2022 02:00 INDICATION: Anterior right knee pain post fall TECHNIQUE: Anteroposterior, oblique and crosstable lateral views of the right knee were obtained COMPARISON: Right tibia/fibular radiographs dated 04/09/2015 FINDINGS: Alignment is normal. No fracture. There is at least mild joint space narrowing in the medial and pat ellofemoral compartments. Heart, small marginal osteophytes in all 3 compartments. Minimal right knee joint effusion without layering lipohemarthrosis. Soft tissues are unremarkable. IMPRESSION: 1. Minimal right knee joint effusion with mild osteoarthritis in the medial and patellofemoral compar tments. No acute osseous abnormality. Reviewed, dictated and finalized at location A. IMPRESSION: 1. Minimal right knee joint effusion with mild osteoarthritis in the medial and patellofemoral compartments. No acute osseous abnormality.
--- NOTE | ~2022-08-29 | XR_ITS ---
XR chest 1V portable 09/02/2022 10:11 Indication: Shortness of breath Procedure: AP portable chest Comparison: 08/29/2022 Findings: There is developing patchy bilateral airspace disease, compatible with pneumonia. Possible small left effusion. No pneumothorax. There are partially calcified breast implants. There is a hiata l hernia. Impression: 1: Developing patchy bilateral airspace disease, compatible with pneumonia. Reviewed, dictated and finalized at location A. Impression: 1: Developing patchy bilateral airspace disease, compatible with pneumonia.
--- NOTE | 2022-08-29 15:55 | ECG_ITS ---
Measurements Intervals [place] Rate: 96 P: 28 ND: 154 QRS: -21 QRSD: 73 T: 60 QT: 339 QTc: 430 Interpretive Statements SINUS RHYTHM BORDERLINE LEFT AXIS DEVIATION [QRS AXIS < -20] COMPARED TO ECG 04/19/2022 19:18:03 NO SIGNIFICANT CHANGES Electronically Signed On 08-30-2022 16:32:55 CDT by Deidre White M.D.
[2022-08-29 16:02] VITALS: BP 88/50; PULSE 96; RESP 20; TEMP 36.2; O2SAT 92
[2022-08-29 16:10] LABS: Basophils Percent Auto 0.3 % (0.2-1.2); Eosinophils Percent Auto 0.8 % (0-4.4); Hematocrit 38.8 % (37.0-47.0); Hemoglobin 12.5 g/dL (12.0-15.0); Immature Granulocyte Absolute 0.06 K/mm3 (0.00-0.031); Immature Granulocyte Percent A 1.5 % (0-0.5); Lymphocytes Absolute Auto 1.37 K/mm3 (0.9-3.2); Lymphocytes Percent Auto 35.1 % (18.3-44.2); Mean Corpuscular HGB Conc 32.2 g/dl (32-36); Mean Corpuscular Hemoglobin 29.7 pg (26-34); Mean Corpuscular Volume 92.2 fl (80-100); Monocytes Absolute Auto 0.5 K/mm3 (0.1-0.6); Monocytes Percent Auto 12.1 % (2.6-8.5); Neutrophils Percent Auto 50.2 % (45.5-73.1); Platelet Count Result 139 k/mm3 (150-375); Red Blood Count 4.21 M/mm3 (4.2-5.4); Red Cell Distribution Width 12.9 % (11.5-14.5); White Blood Count 3.9 K/mm3 (4.5-10.0)
[2022-08-29 16:14] VITALS: O2SAT 94
[2022-08-29] MEDS: SODIUM CHLORIDE 0.9% IV 500 ML 999 ML (16:17)
[2022-08-29 16:20] LABS: Alanine Aminotransferase 15 U/L (6-35); Albumin Level 3.7 g/dL (3.5-5.1); Alkaline Phosphatase 100 U/L (38-126); Anion Gap 9 mmol/L (8-16); Aspartate Amino Transferase 39 U/L (14-36); Bilirubin,Total 0.4 mg/dL (0.2-1.3); Blood Urea Nitrogen 11 mg/dL (7-17); Calcium 8.5 mg/dL (8.4-10.2); Carbon Dioxide 24 mmol/L (22-30); Chloride 105 mmol/L (98-107); Estimated CRCL calculation 41 ml/min; Estimated Glomerular Filt Rate 49; Glucose 122 mg/dL (65-110); Potassium 3.5 mmol/L (3.4-5.0); Sodium 138 mmol/L (137-145)
--- NOTE | 2022-08-29 17:16 | ED.SOB ---
HPI - SOB/Dyspnea General Chief Complaint: Shortness of Breath/Dyspnea <KARLENE Viveros Last Filed: 08/29/22 19:09> Stated Complaint: Shortness of breath <KARLENE Viveros Last Filed: 08/29/22 19:09> Time Seen by Provider: 08/29/22 17:16 <KARLENE Viveros Last Filed: 08/29/22 19:09> Source: patient <KARLENE Viveros Last Filed: 08/29/22 19:09> Mode of arrival: EMS <KARLENE Viveros Last Filed: 08/29/22 19:09> Limitations: no limitations <KARLENE Viveros Last Filed: 08/29/22 19:09> History of Present Illness HPI Narrative: Patient is a 72 y/o female who presents to the ED via EMS with c/o shortness of breath and generalized weakness. Patient reports she has been feeling increasingly weak for the over the last 4 to 5 days. She states she has difficulty ambulating throughout her house due to the weakness and has fallen a couple times. No significant injuries. No head injury. She has had increased shortness of breath with exertion and a productive cough with green sputum as well for the last 4 to 5 days. She also reported an episode of midsternal chest pain earlier today, but denies any chest pain currently. No fevers, abdominal pain, nausea, vomiting, congestion, rhinorrhea, BLE pain or edema. Upon arrival to the ED, patient's blood pressure noted to be 88/50. She was working hard to breathe. Oxygen saturation was 92% on room air. She was placed on 2 L nasal cannula which improved her saturation into the upper 90s. Patient does not wear oxygen at home. <KARLENE Viveros Last Filed: 08/29/22 19:09> Related Data Home Medications: Home Medications Medication Instructions Recorded Confirmed atorvastatin 10 mg tablet 10 mg PO DAILY 04/20/22 04/20/22 clonazepam 1 mg tablet 1 mg PO QPM 04/20/22 04/20/22 dextroamphetamine-amphetamine 12.5 12.5 mg PO BID 04/20/22 04/20/22 mg tablet doxepin 100 mg capsule 100 mg PO QPM 04/20/22 04/20/22 fluoxetine 10 mg capsule 10 mg PO DAILY 04/20/22 04/20/22 gabapentin 300 mg capsule 600 mg PO TID 04/20/22 04/20/22 lisinopril 20 mg tablet 20 mg PO DAILY 04/20/22 04/20/22 meloxicam 15 mg tablet 15 mg PO DAILY 04/20/22 04/20/22 rabeprazole 20 mg tablet,delayed 20 tablet PO DAILY 04/20/22 04/20/22 release risperidone 0.25 mg tablet 0.25 mg PO QPM 04/20/22 04/20/22 tizanidine 2 mg tablet 2 mg PO Q12H PRN Muscle Spasm 04/20/22 04/20/22 <KARLENE Viveros Last Filed: 08/29/22 19:09> Allergies/Adverse Reactions: Allergies Allergy/AdvReac Type Severity Reaction Status Date / Time aripiprazole Allergy Mild Unknown Verified 11/27/19 16:32 pregabalin Allergy Mild Unknown Verified 11/27/19 16:32 cimetidine Allergy Unknown Unknown Verified 11/27/19 16:32 lansoprazole Allergy Unknown Unknown Verified 11/27/19 16:32 omeprazole Allergy Unknown Unknown Verified 11/27/19 16:32 pantoprazole Allergy Unknown Unknown Verified 11/27/19 16:32 ranitidine Allergy Unknown Unknown Verified 11/27/19 16:32 diphenhydramine AdvReac Mild Other Verified 11/27/19 16:32 nitrofurantoin AdvReac Mild Unknown Verified 11/27/19 16:32 oxybutynin AdvReac Unknown Verified 11/27/19 16:32 <KARLENE Viveros Last Filed: 08/29/22 19:09> Review of Systems Review of Systems: CONSTITUTIONAL: Reports generalized weakness. Denies fever, chills, or sweats. ENT: Denies rhinorrhea, congestion. CARDIOVASCULAR: Reports midsternal CP. Denies BLE edema. RESPIRATORY: Reports cough, dyspnea, DUBOIS. GASTROINTESTINAL: Denies abdominal pain, nausea, vomiting. MUSCULOSKELETAL: Denies BLE pain. <Ciera Garcia PA-C - Last Filed: 08/29/22 19:09> All systems reviewed & are unremarkable except as noted in HPI and below <Ciera Garcia PA-C - Last Filed: 08/29/22 19:09> [facility] Past Medical History Medical History: Medical History (Reviewed 08/29/22 @ 17:16 by Ciera Cabrera
[2022-08-29 17:34] VITALS: O2SAT 94
[2022-08-29 17:35] VITALS: BP 150/76; PULSE 84; RESP 20; O2SAT 94
[2022-08-29 18:17] LABS: Lactic Acid Reflex 1.5 mmol/L (0.7-2.0)
[2022-08-29 18:28] LABS: Troponin I < 0.012 ng/mL (0.000-0.034)
[2022-08-29 18:40] LABS: SARS-CoV-2 RNA PCR Negative
--- NOTE | 2022-08-29 19:47 | PC.NURSE ---
pt to cat scan.
[2022-08-29 20:02] VITALS: BP 115/74; PULSE 86; RESP 16; O2SAT 98
--- NOTE | 2022-08-29 20:26 | PM.IMHP ---
H&P: HPI History of Present Illness Date/Time: 08/29/22 20:26 Chief Complaint: Shortness of breath Narrative: This is a 72-year-old female patient who was short of breath and complaining of generalized weakness. The patient has been weak for the last 4 5 days. She has had a couple different falls due to her weakness. She has been having difficulty ambulating throughout her house due to the weakness. She has no significant injuries no head injury. She has been coughing up green sputum for 4-5 days. The patient's blood pressure initially was 88/50 in the ER home she was working hard to breathe. However when I saw her her oxygen level was 92% on room air. The patient does not wear oxygen at home. Chest x-ray was read as developing patchy bilateral airspace disease compatible with pneumonia. Patient was started on IV fluids Rocephin and azithromycin. The patient lives home alone and stated that she was not be able to take care of herself at home. Her white count was noted to be 3.9. Platelet count 139. D-dimer was mildly elevated at 0.50. Creatinine 1.10. Patient stated that she has had a poor appetite over the last couple days. The patient is negative for COVID. The patient is being admitted for observation status on the date of service of 08/29/2022. Review of Systems Review of Systems: See HPI All systems reviewed & are unremarkable except as noted in HPI and below Constitutional: Constitutional: Reports as per HPI and Reports no additional constitutional complaints Eyes: Eyes: Reports as per HPI and Reports no additional eye complaints ENT: Reports system reviewed and no additional complaints, except as documented and Reports Normal hearing present Cardiovascular: Cardiovascular: Reports no additional cardiovascular complaints Respiratory: Respiratory: Reports no additional respiratory complaints and Reports no additional respiratory complaints Gastrointestinal: Gastrointestinal: Reports as per HPI and Reports no additional gastrointestinal complaints Musculoskeletal: Musculoskeletal: Reports no additional musculoskeletal complaints Integumentary/Breasts: Skin/Breast: Reports system reviewed and no additional complaints, except as docu and Reports as per HPI Neurologic: Reports system reviewed and no additional complaints, except as documented, Reports as per HPI and Reports Normal hearing present Psychiatric: Psychiatric: Reports no additional psychiatric complaints and Reports as per HPI Endocrine: Endocrine: Reports no additional endocrine complaints Hematologic/Lymphatic: Hematologic/Lymphatic: Reports no additional hematologic/lymphatic complaints Allergic/Immunologic: Allergic/Immunologic: Reports no additional allergic/immunologic complaints [facility] Past Medical History Medical History ADHD Anxiety and depression Bursitis Dyslipidemia Fibromyalgia Gastroesophageal reflux Hypertension Osteoarthritis Surgical History Surgical History (Updated 08/29/22 @ 21:26 by Torie Persaud NP) History of appendectomy History of bilateral carpal tunnel release History of cholecystectomy History of partial hysterectomy Hx of rectal polypectomy Family History Family History Sibling Cerebrovascular accident Sibling Cerebrovascular accident Mother Diabetes mellitus Social History Social History (Updated 08/29/22 @ 21:29 by Torie Persaud NP) Social History: The patient only smoked for brief period of time. She quit at the age of 24. She is and has 3 children. She is retired from [employer]. Her daughter is the durable power trust and estates attorney for healthcare. The patient does not use any alcohol marijuana or illicit drugs. Code status full code Smoking packs per day: 3 Smoking cigarettes per day: 60.0 Years smoked: 10 Smoking pack-years: 30.00 Smoking status: Never smoker
[2022-08-29 21:30] VITALS: BP 138/72; PULSE 86; RESP 18; TEMP 36.8; O2SAT 96
--- NOTE | 2022-08-29 21:53 | PC.NURSE ---
This patient, Neida Oakes, was admitted to 3 Med Surg Room 317-02. Patient/family oriented to hospital policies and general routines including ID bracelet, bed and alarms, visiting hours, pain management, procedures, bathroom and other care routines, personal items, smoking policy, room service/diet, and visiting hours. Information on how to activate the Rapid Response Team has been discussed. Patient/Family are encouraged to report perceived risks to care and to ask questions if they do not understand what they are told or what they should do. report received from [facility].
[2022-08-29] MEDS: FAMOTIDINE 20 MG TABLET PO (21:54)
[2022-08-30] VITALS (10 sets, daily range): BP systolic 139–144; BP diastolic 62–81; PULSE 85–97; RESP 16–26; TEMP 36.3–37.6; O2SAT 90–95; BMI 32.8
[2022-08-30 00:49] LABS: Bacteria Urine 2+ /hpf; Mucus Urine Rare /lpf; Squamous Epithelial Cell Urine Moderate /hpf (Few); Transitional Epi Cells Urine Rare /hpf (None Seen); WBC Urine 31-50 /hpf
[2022-08-30 00:50] LABS: Appearance Urine Clear (Clear); Bilirubin Urine Negative (Negative); Blood Urine Trace-intact (Negative); Color Urine Yellow (Yellow); Glucose Urine UA Negative (Negative); Ketones Urine Negative (Negative); Leukocyte Esterase Ur 1+ LEU/UL (Negative); Nitrate Urine Positive (Negative); Protein Urine 1+ mg/dL (Negative); Specific Grav Ur >= 1.030 (1.001-1.035); Urobilinogen Urine 0.2 mg/dL (<2.0); pH Urine 5.5 (5.0-9.0)
[2022-08-30 00:51] LABS: Add Urine Microscopic? YES
--- NOTE | 2022-08-30 05:38 | PC.NURSE ---
pt informed sputum cultures sample is needed, container placed at pt bedside. Awaiting sputum sample for collection.
[2022-08-30 06:00] LABS: Basophils Percent Auto 0.3 % (0.2-1.2); Eosinophils Percent Auto 0.3 % (0-4.4); Hematocrit 34.2 % (37.0-47.0); Immature Granulocyte Absolute 0.06 K/mm3 (0.00-0.031); Immature Granulocyte Percent A 1.8 % (0-0.5); Lymphocytes Absolute Auto 0.82 K/mm3 (0.9-3.2); Lymphocytes Percent Auto 24.9 % (18.3-44.2); Mean Corpuscular HGB Conc 32.2 g/dl (32-36); Mean Corpuscular Volume 90.2 fl (80-100); Mean Platelet Volume 10.3 fl (7.4-10.4); Monocytes Absolute Auto 0.5 K/mm3 (0.1-0.6); Neutrophils Absolute Auto 1.9 K/mm3 (1.3-6.7); Neutrophils Percent Auto 58.7 % (45.5-73.1); Platelet Count Result 126 k/mm3 (150-375); Red Blood Count 3.79 M/mm3 (4.2-5.4); Red Cell Distribution Width 12.5 % (11.5-14.5); White Blood Count 3.3 K/mm3 (4.5-10.0)
[2022-08-30 06:21] LABS: Alanine Aminotransferase 12 U/L (6-35); Albumin Level 3.2 g/dL (3.5-5.1); Alkaline Phosphatase 80 U/L (38-126); Anion Gap 6 mmol/L (8-16); Aspartate Amino Transferase 30 U/L (14-36); Bilirubin,Total 0.4 mg/dL (0.2-1.3); Blood Urea Nitrogen 11 mg/dL (7-17); Carbon Dioxide 25 mmol/L (22-30); Chloride 103 mmol/L (98-107); Estimated CRCL calculation 44 ml/min; Estimated Glomerular Filt Rate 55; Glucose 115 mg/dL (65-110); Magnesium 1.9 mg/dL (1.6-2.3); Potassium 3.8 mmol/L (3.4-5.0); Sodium 134 mmol/L (137-145)
[2022-08-30 06:28] LABS: Lactic Acid Reflex 0.7 mmol/L (0.7-2.0)
[2022-08-30] MEDS: IPRATROPIUM BR 0.02% INH SOLN 0.5 MG/2.5 ML VIAL INHALATION ×2 (08:14→13:26)
[2022-08-30] MEDS: ALBUTEROL SULFATE NEB 2.5 MG/3 ML INH INHALATION ×2 (08:14→13:27)
[2022-08-30] MEDS: ATORVASTATIN 10 MG TABLET PO (08:52)
[2022-08-30] MEDS: FAMOTIDINE 20 MG TABLET PO ×2 (08:52→19:59)
[2022-08-30] MEDS: lisinopriL 20 MG TABLET PO (08:53)
[2022-08-30] MEDS: VITAMIN B COMPLEX CAPSULE 1 CAP PO (08:54)
--- NOTE | 2022-08-30 12:15 | PM.IMPN ---
Progress Note: A&P Assessment and Plan (1) Pneumonia: Qualifiers: Laterality: bilateral Lung location: unspecified part of lung Pneumonia type: due to unspecified organism Qualified Code(s): J18.9 - Pneumonia, unspecified organism Code(s): J18.9 - Pneumonia, unspecified organism Status: Acute Assessment and Plan: -chest x-ray shows patchy bilateral airspace disease compatible with pneumonia -continue azithromycin and Rocephin for community-acquired pneumonia. -sputum ordered -blood cultures are pending -continue with nebulizer treatment -WBCs 3.3 -no supplemental oxygen at this time (2) Hypertension: Code(s): I10 - Essential (primary) hypertension Status: Acute Assessment and Plan: -current blood pressure 144/62 -continue with lisinopril -Trend blood pressure -adjust therapy as indicated (3) Dyslipidemia: Code(s): E78.5 - Hyperlipidemia, unspecified Status: Acute Assessment and Plan: -continue with atorvastatin (4) Fibromyalgia: Code(s): M79.7 - Fibromyalgia Status: Acute Assessment and Plan: -continue with gabapentin, and tizanidine (5) Anxiety and depression: Code(s): F41.9 - Anxiety disorder, unspecified; F32.A - Depression, unspecified Status: Acute Assessment and Plan: -continue with clonazepam (6) Osteoarthritis: Code(s): M19.90 - Unspecified osteoarthritis, unspecified site Status: Acute Assessment and Plan: -continue with Mobic Time Spent With Patient Time with patient: Greater than 35 minutes Subjective Date/time seen: 08/30/221214 Interval history: 08/30/221214 Patient is short of breath she stated mostly at rest. She stated it is hard to breathe and take a deep breath in. She also states that she has pain when she coughs. She has been going to the bathroom however she feels pretty weak. She denies any chest pain, nausea, vomiting, diarrhea, constipation. Patient also reported a poor appetite. 08/29/22? 20:26 This is a 72-year-old female patient who was short of breath and complaining of generalized weakness.? The patient has been weak for the last 4 5 days.? She has had a couple different falls due to her weakness.? She has been having difficulty ambulating throughout her house due to the weakness.? She has no significant injuries no head injury.? She has been coughing up green sputum for 4-5 days.? The patient's blood pressure initially was 88/50 in the ER home she was working hard to breathe.? However when I saw her her oxygen level was 92% on room air.? The patient does not wear oxygen at home.? Chest x-ray was read as developing patchy bilateral airspace disease compatible with pneumonia.? Patient was started on IV fluids Rocephin and azithromycin.? The patient lives home alone and stated that she was not be able to take care of herself at home.? Her white count was noted to be 3.9.? Platelet count 139.? D-dimer was mildly elevated at 0.50.? Creatinine 1.10.? Patient stated that she has had a poor appetite over the last couple days.? The patient is negative for COVID. The patient is being admitted for observation status on the date of service of 08/29/2022. Review of Systems Review of Systems: All systems reviewed & are unremarkable except as noted in HPI and below Exam Const: General: cooperative, no acute distress, well developed, alert, awake, Physically active, ill appearing, average body habitus and well nourished Nutritional Appearance: average body habitus and well nourished Orientation/consciousness: oriented to person, oriented to place, oriented to time and patient oriented x3 Limitations: no limitations HENMT: Head: normal to inspection, No palpable skull fracture present, normocephalic and atraumatic Ears: hearing grossly normal bilaterally and external ears raphael
[2022-08-30] MEDS: clonazePAM (*CRX) 0.5 MG TABLET 1 MG PO (18:34)
[2022-08-30] MEDS: DOXEPIN HCL 25 MG CAPSULE 50 MG PO (18:34)
[2022-08-30] MEDS: GABAPENTIN 300 MG CAPSULE 600 MG PO (19:59)
[2022-08-31] VITALS (13 sets, daily range): BP systolic 121–133; BP diastolic 64–77; PULSE 76–95; RESP 16–20; TEMP 36.1–37.2; O2SAT 91–94
[2022-08-31] MEDS: ACETAMINOPHEN 500 MG TABLET 1000 MG PO (02:25)
--- NOTE | 2022-08-31 05:35 | PCRCNOTE ---
Patient was sleeping when therapist went in for 1999 treatment. Patient stated she was breathing fine, that she did not need a treatment. Patient also instructed therapist to let her sleep for the 199 treatment. Therapist told pt to call nurse if she felt she needed a treatment. RN to call RT.
[2022-08-31 06:17] LABS: Basophils Percent Auto 0.3 % (0.2-1.2); Eosinophils Percent Auto 0.5 % (0-4.4); Hematocrit 36.1 % (37.0-47.0); Hemoglobin 11.7 g/dL (12.0-15.0); Immature Granulocyte Absolute 0.08 K/mm3 (0.00-0.031); Immature Granulocyte Percent A 2.1 % (0-0.5); Lymphocytes Absolute Auto 0.92 K/mm3 (0.9-3.2); Lymphocytes Percent Auto 24.5 % (18.3-44.2); Mean Corpuscular HGB Conc 32.4 g/dl (32-36); Mean Corpuscular Hemoglobin 29.6 pg (26-34); Mean Corpuscular Volume 91.4 fl (80-100); Mean Platelet Volume 9.9 fl (7.4-10.4); Monocytes Absolute Auto 0.5 K/mm3 (0.1-0.6); Monocytes Percent Auto 13.1 % (2.6-8.5); Neutrophils Absolute Auto 2.2 K/mm3 (1.3-6.7); Neutrophils Percent Auto 59.5 % (45.5-73.1); Platelet Count Result 148 k/mm3 (150-375); Red Blood Count 3.95 M/mm3 (4.2-5.4); Red Cell Distribution Width 12.5 % (11.5-14.5); White Blood Count 3.8 K/mm3 (4.5-10.0)
[2022-08-31 06:27] LABS: Alanine Aminotransferase 11 U/L (6-35); Albumin Level 3.5 g/dL (3.5-5.1); Alkaline Phosphatase 70 U/L (38-126); Anion Gap 13 mmol/L (8-16); Aspartate Amino Transferase 31 U/L (14-36); Bilirubin,Total 0.6 mg/dL (0.2-1.3); Blood Urea Nitrogen 13 mg/dL (7-17); Calcium 8.6 mg/dL (8.4-10.2); Carbon Dioxide 26 mmol/L (22-30); Chloride 99 mmol/L (98-107); Estimated CRCL calculation 41 ml/min; Estimated Glomerular Filt Rate 49; Glucose 115 mg/dL (65-110); Magnesium 2.2 mg/dL (1.6-2.3); Potassium 3.8 mmol/L (3.4-5.0); Sodium 138 mmol/L (137-145)
[2022-08-31] MEDS: IPRATROPIUM BR 0.02% INH SOLN 0.5 MG/2.5 ML VIAL INHALATION ×3 (08:39→21:00)
[2022-08-31] MEDS: ALBUTEROL SULFATE NEB 2.5 MG/3 ML INH INHALATION ×3 (08:39→21:00)
[2022-08-31] MEDS: VITAMIN B COMPLEX CAPSULE 1 CAP PO (09:14)
[2022-08-31] MEDS: MELOXICAM 7.5 MG TABLET 15 MG PO (09:14)
[2022-08-31] MEDS: ATORVASTATIN 10 MG TABLET PO (09:14)
[2022-08-31] MEDS: FAMOTIDINE 20 MG TABLET PO (09:15)
[2022-08-31] MEDS: lisinopriL 20 MG TABLET PO (09:15)
[2022-08-31] MEDS: ENOXAPARIN 40 MG/0.4 ML SYRINGE SUB-Q (09:16)
--- NOTE | 2022-08-31 09:45 | PM.IMPN ---
Progress Note: A&P Assessment and Plan (1) Pneumonia: Qualifiers: Laterality: bilateral Lung location: unspecified part of lung Pneumonia type: due to unspecified organism Qualified Code(s): J18.9 - Pneumonia, unspecified organism Code(s): J18.9 - Pneumonia, unspecified organism Status: Acute Assessment and Plan: -chest x-ray shows patchy bilateral airspace disease compatible with pneumonia -continue azithromycin and Rocephin day 2 -sputum ordered still awaiting collection -blood cultures No growth to date -continue with nebulizer treatment -WBCs 3.8 -no supplemental oxygen at this time (2) Hypertension: Code(s): I10 - Essential (primary) hypertension Status: Acute Assessment and Plan: -current blood pressure 123/64 -continue with lisinopril -Trend blood pressure -adjust therapy as indicated (3) Dyslipidemia: Code(s): E78.5 - Hyperlipidemia, unspecified Status: Acute Assessment and Plan: -continue with atorvastatin (4) Fibromyalgia: Code(s): M79.7 - Fibromyalgia Status: Acute Assessment and Plan: -continue with gabapentin, and tizanidine (5) Anxiety and depression: Code(s): F41.9 - Anxiety disorder, unspecified; F32.A - Depression, unspecified Status: Acute Assessment and Plan: -continue with clonazepam (6) Osteoarthritis: Code(s): M19.90 - Unspecified osteoarthritis, unspecified site Status: Acute Assessment and Plan: -continue with Mobic (7) Fall: Code(s): W19.XXXA - Unspecified fall, initial encounter Status: Acute Assessment and Plan: Reported fall overnight Complaints of right knee pain X-ray indicated right joint effusion that is very minimal PT/OT ordered Care coordination for placement (8) Urinary tract infection: Code(s): N39.0 - Urinary tract infection, site not specified Status: Acute Assessment and Plan: UA does appear infectious urine culture found to contamination patient does have symptoms continue to treat with ceftriaxone, changed to p.o. when able to discharge Time Spent With Patient Time with patient: Greater than 35 minutes Subjective Date/time seen: 08/31/22 08:11 Interval history: 08/31/22 0945 Patient is doing okay today. She did fall throughout the night and hurt her knee. X-ray reveals a small effusion. She is also complaining of a productive cough with green thick sputum. She is still very weak and she is having doubts about going home. She currently denies any chest pain, shortness of breath, nausea, vomiting. She does have pain however it seems to be chronic. 08/30/22 1215 Patient is short of breath she stated mostly at rest. She stated it is hard to breathe and take a deep breath in. She also states that she has pain when she coughs. She has been going to the bathroom however she feels pretty weak. She denies any chest pain, nausea, vomiting, diarrhea, constipation. Patient also reported a poor appetite. 08/29/22? 20:26 This is a 72-year-old female patient who was short of breath and complaining of generalized weakness.? The patient has been weak for the last 4 5 days.? She has had a couple different falls due to her weakness.? She has been having difficulty ambulating throughout her house due to the weakness.? She has no significant injuries no head injury.? She has been coughing up green sputum for 4-5 days.? The patient's blood pressure initially was 88/50 in the ER home she was working hard to breathe.? However when I saw her her oxygen level was 92% on room air.? The patient does not wear oxygen at home.? Chest x-ray was read as developing patchy bilateral airspace disease compatible with pneumonia.? Patient was started on IV fluids Rocephin and azithromycin.? The pat
[2022-08-31] MEDS: DOXEPIN HCL 25 MG CAPSULE 50 MG PO (18:03)
[2022-08-31] MEDS: clonazePAM (*CRX) 0.5 MG TABLET 1 MG PO ×2 (18:03→23:06)
[2022-08-31] MEDS: GABAPENTIN 300 MG CAPSULE 600 MG PO (20:07)
[2022-08-31] MEDS: TIZANIDINE HCL 2 MG TABLET 4 MG PO (21:10)
--- NOTE | 2022-08-31 23:56 | PC.NURSE ---
Pt. called nurse into room around 22:30 with complaints of being unable to take a deep breath in and hyperventilating. Pt. O2 saturation at this time was fluctuating from 87%-90%. Pt. placed on 2L of oxygen and HOB raised to 90 degrees with improvements to oxygen saturation at 94%. Pt. felt she was having a lot of anxiety and that was why she was unable to catch her breath. Pt. received her scheduled doxepin and clonazepam at 18:00 on 08/31/22. Received order from Dr. Vaz to administer a one time dose of 1mg clonazepam. Pt. still on the 2L of oxygen at this time, but sleeping comfortably after administration. Will continue to monitor.
[2022-09-01] VITALS (15 sets, daily range): BP systolic 92–120; BP diastolic 51–62; PULSE 72–90; RESP 14–18; TEMP 36.2; O2SAT 87–95
[2022-09-01] MEDS: IPRATROPIUM BR 0.02% INH SOLN 0.5 MG/2.5 ML VIAL INHALATION ×4 (01:45→20:50)
[2022-09-01] MEDS: ALBUTEROL SULFATE NEB 2.5 MG/3 ML INH INHALATION ×4 (01:45→20:51)
[2022-09-01 06:08] LABS: Basophils Percent Auto 0.2 % (0.2-1.2); Eosinophils Percent Auto 0.7 % (0-4.4); Hematocrit 36.3 % (37.0-47.0); Hemoglobin 11.7 g/dL (12.0-15.0); Immature Granulocyte Absolute 0.09 K/mm3 (0.00-0.031); Lymphocytes Percent Auto 29.3 % (18.3-44.2); Mean Corpuscular HGB Conc 32.2 g/dl (32-36); Mean Corpuscular Hemoglobin 29.4 pg (26-34); Mean Corpuscular Volume 91.2 fl (80-100); Mean Platelet Volume 9.9 fl (7.4-10.4); Monocytes Absolute Auto 0.4 K/mm3 (0.1-0.6); Monocytes Percent Auto 9.9 % (2.6-8.5); Neutrophils Absolute Auto 2.6 K/mm3 (1.3-6.7); Neutrophils Percent Auto 57.9 % (45.5-73.1); Platelet Count Result 158 k/mm3 (150-375); Red Blood Count 3.98 M/mm3 (4.2-5.4); Red Cell Distribution Width 12.7 % (11.5-14.5); White Blood Count 4.4 K/mm3 (4.5-10.0)
[2022-09-01 06:31] LABS: Alanine Aminotransferase 14 U/L (6-35); Albumin Level 3.5 g/dL (3.5-5.1); Alkaline Phosphatase 78 U/L (38-126); Anion Gap 10 mmol/L (8-16); Aspartate Amino Transferase 37 U/L (14-36); Bilirubin,Total 0.4 mg/dL (0.2-1.3); Blood Urea Nitrogen 25 mg/dL (7-17); Calcium 8.3 mg/dL (8.4-10.2); Carbon Dioxide 25 mmol/L (22-30); Chloride 101 mmol/L (98-107); Estimated CRCL calculation 28 ml/min; Estimated Glomerular Filt Rate 32; Glucose 107 mg/dL (65-110); Magnesium 2.1 mg/dL (1.6-2.3); Potassium 3.8 mmol/L (3.4-5.0); Sodium 136 mmol/L (137-145)
[2022-09-01] MEDS: MELOXICAM 7.5 MG TABLET 15 MG PO (08:47)
[2022-09-01] MEDS: lisinopriL 20 MG TABLET PO (08:47)
[2022-09-01] MEDS: ATORVASTATIN 10 MG TABLET PO (08:48)
[2022-09-01] MEDS: ENOXAPARIN 40 MG/0.4 ML SYRINGE SUB-Q (08:48)
[2022-09-01] MEDS: VITAMIN B COMPLEX CAPSULE 1 CAP PO (08:48)
--- NOTE | 2022-09-01 09:15 | PM.IMPN ---
Progress Note: A&P Assessment and Plan (1) Pneumonia: Qualifiers: Laterality: bilateral Lung location: unspecified part of lung Pneumonia type: due to unspecified organism Qualified Code(s): J18.9 - Pneumonia, unspecified organism Code(s): J18.9 - Pneumonia, unspecified organism Status: Acute Assessment and Plan: -chest x-ray shows patchy bilateral airspace disease compatible with pneumonia -continue azithromycin and Rocephin day 3 -sputum order repeated, first one came back as not culturable -blood cultures No growth to date -continue with nebulizer treatment -WBCs 4.4 -Currently requiring supplemental oxygen -ABG is normal with hypoxia (2) Hypertension: Code(s): I10 - Essential (primary) hypertension Status: Acute Assessment and Plan: -current blood pressure 120/51 -continue with lisinopril -Trend blood pressure -adjust therapy as indicated (3) Dyslipidemia: Code(s): E78.5 - Hyperlipidemia, unspecified Status: Acute Assessment and Plan: -continue with atorvastatin (4) Fibromyalgia: Code(s): M79.7 - Fibromyalgia Status: Acute Assessment and Plan: -continue with gabapentin, and tizanidine (5) Anxiety and depression: Code(s): F41.9 - Anxiety disorder, unspecified; F32.A - Depression, unspecified Status: Acute Assessment and Plan: -continue with clonazepam (6) Osteoarthritis: Code(s): M19.90 - Unspecified osteoarthritis, unspecified site Status: Acute Assessment and Plan: -continue with Mobic (7) Fall: Code(s): W19.XXXA - Unspecified fall, initial encounter Status: Acute Assessment and Plan: Reported fall overnight Complaints of right knee pain X-ray indicated right joint effusion that is very minimal PT/OT ordered Care coordination for placement (8) Urinary tract infection: Code(s): N39.0 - Urinary tract infection, site not specified Status: Acute Assessment and Plan: UA does appear infectious urine culture found to contamination patient does have symptoms continue to treat with ceftriaxone, changed to p.o. when able to discharge UA with culture recollected (9) SHERI (acute kidney injury): Code(s): N17.9 - Acute kidney failure, unspecified Status: Acute Assessment and Plan: BUN/CR elevated Creatine up to 1.60 Baseline appears to be about 1.0 1 L of fluid given Continue to trend labs Time Spent With Patient Time with patient: Greater than 35 minutes Subjective Date/time seen: 09/01/22914 Interval history: 09/01/22914 Patient is not doing as well today. Patient was placed on oxygen overnight due to saturation in the low 80s. Oxygen was weaned down however patient was unable to tolerate and was 87 %. The patient stated that she was not doing very well and she just was not feeling right. She also stated that her sputum production has gone up as well. She is also complaining that her urine smells bad and she is having urgency and frequency. BUN creatinine have increased to 25/1.60. Urine has been recollected. Will get urine studies as well. 08/31/22944 Patient is doing okay today. She did fall throughout the night and hurt her knee. X-ray reveals a small effusion. She is also complaining of a productive cough with green thick sputum. She is still very weak and she is having doubts about going home. She currently denies any chest pain, shortness of breath, nausea, vomiting. She does have pain however it seems to be chronic. 08/30/22 1215 Patient is short of breath she stated mostly at rest. She stated it is hard to breathe and take a deep breath in. She also states that she has pain when she coughs. She has been going to the bathroom however she
[2022-09-01] MEDS: SODIUM CHLORIDE 0.9% IV 1,000 ML 999 ML IV CONT (10:00)
[2022-09-01 11:09] LABS: NT Pro B Type Natriuretic Pept 56 pg/mL (5-100)
[2022-09-01 12:06] LABS: Alveolar/Arterial O2 Gradient 119.2 mmHg; Carboxyhemoglobin 0.3 % THb (0-2.0); Fractional Inspired Oxygen 32 %; HCO3 ABG 23.2 mEq/l (22.0-26.0); Methemoglobin ABG 0.3 %THb (0-1.5); Oxygen Content ABG 14.8 %vol (16.0-22.0); Oxygen Saturation ABG 93.4 % (95.0-100.0); Oxyhemoglobin 90.8 % THb (90.0-100.0); PCO2 ABG 36.9 mmHg (35.0-45.0); PO2 ABG 65.8 mmHg (80.0-100.0); PO2 FiO2 Ratio Arterial Blood 2.06 %; Reduced Hemoglobin 8.6 %THb (0-5.0); Total Hemoglobin 11.6 g/dL (12.0-18.0); pH ABG 7.416 (7.350-7.450)
[2022-09-01 12:08] LABS: Device NASAL CANNULA; Modified Allen's Test Pass; Site Drawn LEFT RADIAL
[2022-09-01 13:51] LABS: Alanine Aminotransferase 13 U/L (6-35); Albumin Level 3.2 g/dL (3.5-5.1); Alkaline Phosphatase 71 U/L (38-126); Anion Gap 9 mmol/L (8-16); Aspartate Amino Transferase 32 U/L (14-36); Bilirubin,Total 0.3 mg/dL (0.2-1.3); Blood Urea Nitrogen 28 mg/dL (7-17); Carbon Dioxide 25 mmol/L (22-30); Chloride 103 mmol/L (98-107); Estimated CRCL calculation 30 ml/min; Estimated Glomerular Filt Rate 34; Glucose 107 mg/dL (65-110); Potassium 3.6 mmol/L (3.4-5.0); Sodium 137 mmol/L (137-145)
[2022-09-01 14:11] LABS: Add Urine Microscopic? YES; Appearance Urine Cloudy (Clear); Bilirubin Urine Negative (Negative); Blood Urine Negative (Negative); Color Urine Yellow (Yellow); Glucose Urine UA Negative (Negative); Ketones Urine Negative (Negative); Leukocyte Esterase Ur Negative LEU/UL (Negative); Mucus Urine Rare /lpf; Nitrate Urine Negative (Negative); Protein Urine Negative (Negative); RBC Urine 0-2 /hpf (0-2); Specific Grav Ur 1.016 (1.001-1.035); Squamous Epithelial Cell Urine Few /hpf (Few); Urobilinogen Urine Negative mg/dL (<2.0); WBC Urine 0-3 /hpf
[2022-09-01 14:35] LABS: Creatinine Urine 195.1 mg/dL; Urea Random Urine 562 MG/DL
[2022-09-01 14:45] LABS: Sodium Urine Random 27 meq/L
[2022-09-01] MEDS: clonazePAM (*CRX) 0.5 MG TABLET 1 MG PO (20:28)
[2022-09-01] MEDS: DOXEPIN HCL 25 MG CAPSULE 50 MG PO (20:29)
[2022-09-01] MEDS: GABAPENTIN 300 MG CAPSULE 600 MG PO (20:29)
[2022-09-02] VITALS (14 sets, daily range): BP systolic 123–148; BP diastolic 57–77; PULSE 73–85; RESP 14–24; TEMP 36.1–36.7; O2SAT 9–100
[2022-09-02] MEDS: IPRATROPIUM BR 0.02% INH SOLN 0.5 MG/2.5 ML VIAL INHALATION ×4 (03:49→20:38)
[2022-09-02] MEDS: ALBUTEROL SULFATE NEB 2.5 MG/3 ML INH INHALATION ×4 (03:49→20:38)
[2022-09-02 07:27] LABS: Basophils Percent Auto 0.3 % (0.2-1.2); Eosinophils Absolute Auto 0.1 K/mm3 (0-0.3); Eosinophils Percent Auto 2.5 % (0-4.4); Hematocrit 34.2 % (37.0-47.0); Immature Granulocyte Absolute 0.06 K/mm3 (0.00-0.031); Immature Granulocyte Percent A 1.6 % (0-0.5); Lymphocytes Absolute Auto 0.99 K/mm3 (0.9-3.2); Lymphocytes Percent Auto 27.2 % (18.3-44.2); Mean Corpuscular HGB Conc 32.2 g/dl (32-36); Mean Corpuscular Hemoglobin 29.9 pg (26-34); Mean Corpuscular Volume 92.9 fl (80-100); Mean Platelet Volume 10.8 fl (7.4-10.4); Monocytes Absolute Auto 0.3 K/mm3 (0.1-0.6); Neutrophils Absolute Auto 2.2 K/mm3 (1.3-6.7); Neutrophils Percent Auto 60.4 % (45.5-73.1); Platelet Count Result 173 k/mm3 (150-375); Red Blood Count 3.68 M/mm3 (4.2-5.4); White Blood Count 3.6 K/mm3 (4.5-10.0)
[2022-09-02 07:52] LABS: Alanine Aminotransferase 12 U/L (6-35); Albumin Level 3.2 g/dL (3.5-5.1); Alkaline Phosphatase 67 U/L (38-126); Anion Gap 8 mmol/L (8-16); Aspartate Amino Transferase 34 U/L (14-36); Bilirubin,Total 0.4 mg/dL (0.2-1.3); Blood Urea Nitrogen 25 mg/dL (7-17); Calcium 8.3 mg/dL (8.4-10.2); Carbon Dioxide 28 mmol/L (22-30); Chloride 104 mmol/L (98-107); Estimated CRCL calculation 41 ml/min; Estimated Glomerular Filt Rate 49; Glucose 106 mg/dL (65-110); Magnesium 2.2 mg/dL (1.6-2.3); Potassium 4.1 mmol/L (3.4-5.0); Sodium 140 mmol/L (137-145)
[2022-09-02] MEDS: lisinopriL 20 MG TABLET PO (09:24)
[2022-09-02] MEDS: FAMOTIDINE 20 MG TABLET PO ×2 (09:24→20:10)
[2022-09-02] MEDS: ENOXAPARIN 40 MG/0.4 ML SYRINGE SUB-Q (09:24)
[2022-09-02] MEDS: VITAMIN B COMPLEX CAPSULE 1 CAP PO (09:24)
[2022-09-02] MEDS: MELOXICAM 7.5 MG TABLET 15 MG PO (09:24)
[2022-09-02] MEDS: ATORVASTATIN 10 MG TABLET PO (09:24)
--- NOTE | 2022-09-02 12:30 | PM.IMPN ---
Progress Note: A&P Assessment and Plan (1) Pneumonia: Qualifiers: Laterality: bilateral Lung location: unspecified part of lung Pneumonia type: due to unspecified organism Qualified Code(s): J18.9 - Pneumonia, unspecified organism Code(s): J18.9 - Pneumonia, unspecified organism Status: Acute Assessment and Plan: -chest x-ray Developing patchy bilateral airspace disease, compatible with pneumonia. 09/02/22 -continue azithromycin and Rocephin day 4 -sputum order repeated, first one came back as not culturable -blood cultures No growth to date -continue with nebulizer treatment -WBCs 4.4 -Currently requiring supplemental oxygen -ABG is normal with hypoxia (2) Hypertension: Code(s): I10 - Essential (primary) hypertension Status: Acute Assessment and Plan: -current blood pressure 123/57 -continue with lisinopril -Trend blood pressure -adjust therapy as indicated -Remains stable (3) Dyslipidemia: Code(s): E78.5 - Hyperlipidemia, unspecified Status: Acute Assessment and Plan: -continue with atorvastatin (4) Fibromyalgia: Code(s): M79.7 - Fibromyalgia Status: Acute Assessment and Plan: -continue with gabapentin, and tizanidine (5) Anxiety and depression: Code(s): F41.9 - Anxiety disorder, unspecified; F32.A - Depression, unspecified Status: Acute Assessment and Plan: -continue with clonazepam (6) Osteoarthritis: Code(s): M19.90 - Unspecified osteoarthritis, unspecified site Status: Acute Assessment and Plan: -continue with Mobic (7) Fall: Code(s): W19.XXXA - Unspecified fall, initial encounter Status: Acute Assessment and Plan: Reported fall overnight Complaints of right knee pain X-ray indicated right joint effusion that is very minimal PT/OT ordered Care coordination for placement (8) Urinary tract infection: Code(s): N39.0 - Urinary tract infection, site not specified Status: Acute Assessment and Plan: UA does appear infectious urine culture found to contamination patient does have symptoms continue to treat with ceftriaxone, changed to p.o. when able to discharge UA with culture recollected, but does not appear infectious (9) SHERI (acute kidney injury): Code(s): N17.9 - Acute kidney failure, unspecified Status: Acute Assessment and Plan: BUN/CR back to baseline Creatine up to 1.10 Baseline appears to be about 1.0 1 L of fluid given Continue to trend labs Urine studies indicate hypovolemia Plan Gave guaifenesin syrup for cough Time Spent With Patient Time with patient: Greater than 35 minutes Subjective Date/time seen: 09/02/221229 Interval history: 09/02/221229 Patient stated that she is doing okay however her biggest complaint is her cough today. She stated that it is really starting to hurt her chest. She denies any nausea, vomiting, diarrhea, constipation, fevers, sweats, chills. She also stated they were able to shut off the oxygen this morning. Otherwise she states that she feels a lot better than she did yesterday. 09/01/22 09 Patient is not doing as well today. Patient was placed on oxygen overnight due to saturation in the low 80s. Oxygen was weaned down however patient was unable to tolerate and was 87 %. The patient stated that she was not doing very well and she just was not feeling right. She also stated that her sputum production has gone up as well. She is also complaining that her urine smells bad and she is having urgency and frequency. BUN creatinine have increased to 25/1.60. Urine has been recollected. Will get urine studies as well. 08/31/22 0945 Patient is doing okay today. She did fall throughout the night and hurt her
--- NOTE | 2022-09-02 12:30 | P.PNIM_ITS ---
Progress Note: A&P Assessment and Plan (1) Pneumonia: Qualifiers: Laterality: bilateral Lung location: unspecified part of lung Pneumonia type: due to unspecified organism Qualified Code(s): J18.9 - Pneumonia, unspecified organism Code(s): J18.9 - Pneumonia, unspecified organism Status: Acute Assessment and Plan: -chest x-ray Developing patchy bilateral airspace disease, compatible with pneumonia. 09/02/22 -continue azithromycin and Rocephin day 4 -sputum order repeated, first one came back as not culturable -blood cultures No growth to date -continue with nebulizer treatment -WBCs 4.4 -Currently requiring supplemental oxygen -ABG is normal with hypoxia (2) Hypertension: Code(s): I10 - Essential (primary) hypertension Status: Acute Assessment and Plan: -current blood pressure 123/57 -continue with lisinopril -Trend blood pressure -adjust therapy as indicated -Remains stable (3) Dyslipidemia: Code(s): E78.5 - Hyperlipidemia, unspecified Status: Acute Assessment and Plan: -continue with atorvastatin (4) Fibromyalgia: Code(s): M79.7 - Fibromyalgia Status: Acute Assessment and Plan: -continue with gabapentin, and tizanidine (5) Anxiety and depression: Code(s): F41.9 - Anxiety disorder, unspecified; F32.A - Depression, unspecified Status: Acute Assessment and Plan: -continue with clonazepam (6) Osteoarthritis: Code(s): M19.90 - Unspecified osteoarthritis, unspecified site Status: Acute Assessment and Plan: -continue with Mobic (7) Fall: Code(s): W19.XXXA - Unspecified fall, initial encounter Status: Acute Assessment and Plan: * Reported fall overnight * Complaints of right knee pain * X-ray indicated right joint effusion that is very minimal * PT/OT ordered * Care coordination for placement (8) Urinary tract infection: Code(s): N39.0 - Urinary tract infection, site not specified Status: Acute Assessment and Plan: * UA does appear infectious * urine culture found to contamination * patient does have symptoms * continue to treat with ceftriaxone, changed to p.o. when able to discharge * UA with culture recollected, but does not appear infectious (9) SHERI (acute kidney injury): Code(s): N17.9 - Acute kidney failure, unspecified Status: Acute Assessment and Plan: * BUN/CR back to baseline * Creatine up to 1.10 * Baseline appears to be about 1.0 * 1 L of fluid given * Continue to trend labs * Urine studies indicate hypovolemia Plan Gave guaifenesin syrup for cough Time Spent With Patient Time with patient: Greater than 35 minutes Subjective Date/time seen: 09/02/22 1230 Interval history: 09/02/221229 Patient stated that she is doing okay however her biggest complaint is her cough today. She stated that it is really starting to hurt her chest. She denies any nausea, vomiting, diarrhea, constipation, fevers, sweats, chills. She also stated they were able to shut off the oxygen this morning. Otherwise she states that she feels a lot better th
[2022-09-02] MEDS: guaiFENesin/DEXTROMETHORPHAN 10 ML UDC PO ×2 (12:53→20:10)
[2022-09-02] MEDS: GABAPENTIN 300 MG CAPSULE 600 MG PO (20:10)
[2022-09-02] MEDS: DOXEPIN HCL 25 MG CAPSULE 50 MG PO (20:11)
[2022-09-02] MEDS: clonazePAM (*CRX) 0.5 MG TABLET 1 MG PO (20:11)
[2022-09-03] MEDS: ALBUTEROL SULFATE NEB 2.5 MG/3 ML INH INHALATION ×2 (02:48→09:35)
[2022-09-03 02:49] VITALS: PULSE 77; RESP 15
[2022-09-03] MEDS: IPRATROPIUM BR 0.02% INH SOLN 0.5 MG/2.5 ML VIAL INHALATION ×2 (02:49→09:36)
[2022-09-03 05:40] VITALS: BP 132/70; PULSE 78; RESP 28; TEMP 36.4; O2SAT 95
[2022-09-03 06:16] LABS: Basophils Percent Auto 0.3 % (0.2-1.2); Eosinophils Absolute Auto 0.1 K/mm3 (0-0.3); Eosinophils Percent Auto 2.9 % (0-4.4); Immature Granulocyte Absolute 0.05 K/mm3 (0.00-0.031); Immature Granulocyte Percent A 1.5 % (0-0.5); Lymphocytes Absolute Auto 1.08 K/mm3 (0.9-3.2); Lymphocytes Percent Auto 31.6 % (18.3-44.2); Mean Corpuscular HGB Conc 32.3 g/dl (32-36); Mean Corpuscular Hemoglobin 28.7 pg (26-34); Mean Corpuscular Volume 88.8 fl (80-100); Mean Platelet Volume 9.8 fl (7.4-10.4); Monocytes Absolute Auto 0.3 K/mm3 (0.1-0.6); Monocytes Percent Auto 8.8 % (2.6-8.5); Neutrophils Absolute Auto 1.9 K/mm3 (1.3-6.7); Neutrophils Percent Auto 54.9 % (45.5-73.1); Platelet Count Result 158 k/mm3 (150-375); Red Blood Count 3.49 M/mm3 (4.2-5.4); Red Cell Distribution Width 12.6 % (11.5-14.5); White Blood Count 3.4 K/mm3 (4.5-10.0)
[2022-09-03 06:23] LABS: Alanine Aminotransferase 13 U/L (6-35); Albumin Level 3.1 g/dL (3.5-5.1); Alkaline Phosphatase 77 U/L (38-126); Anion Gap 7 mmol/L (8-16); Aspartate Amino Transferase 34 U/L (14-36); Bilirubin,Total 0.3 mg/dL (0.2-1.3); Blood Urea Nitrogen 17 mg/dL (7-17); Calcium 8.5 mg/dL (8.4-10.2); Carbon Dioxide 26 mmol/L (22-30); Chloride 107 mmol/L (98-107); Estimated CRCL calculation 49 ml/min; Estimated Glomerular Filt Rate > 60; Glucose 102 mg/dL (65-110); Magnesium 2.1 mg/dL (1.6-2.3); Potassium 3.7 mmol/L (3.4-5.0); Sodium 140 mmol/L (137-145)
[2022-09-03] MEDS: ENOXAPARIN 40 MG/0.4 ML SYRINGE SUB-Q (08:31)
[2022-09-03] MEDS: MELOXICAM 7.5 MG TABLET 15 MG PO (08:32)
[2022-09-03] MEDS: lisinopriL 20 MG TABLET PO (08:33)
[2022-09-03] MEDS: TIZANIDINE HCL 2 MG TABLET 4 MG PO (08:33)
[2022-09-03] MEDS: MULTIVITAMINS THERAPEUTIC TAB (*BKC) 1 TABLET PO (08:34)
[2022-09-03] MEDS: ATORVASTATIN 10 MG TABLET PO (08:34)
[2022-09-03] MEDS: VITAMIN B COMPLEX CAPSULE 1 CAP PO (08:34)
[2022-09-03 09:36] VITALS: PULSE 70; RESP 16
[2022-09-03 09:51] VITALS: PULSE 72; RESP 16
--- NOTE | 2022-09-03 12:15 | PM.DS ---
DS: Admitting Diagnosis Discharge Date 09/03/22 1215 Admitting Diagnosis PNA, UTI, SHERI DS: Discharge Diagnosis Discharge Diagnosis (1) Pneumonia: Qualifiers: Laterality: bilateral Lung location: unspecified part of lung Pneumonia type: due to unspecified organism Qualified Code(s): J18.9 - Pneumonia, unspecified organism Code(s): J18.9 - Pneumonia, unspecified organism Status: Acute Assessment and Plan: -chest x-ray Developing patchy bilateral airspace disease, compatible with pneumonia. 09/02/22 -continue azithromycin and Rocephin day 5 -sputum order repeated, first one came back as not culturable -blood cultures No growth to date -continue with nebulizer treatment -WBCs 3.4 -Currently requiring supplemental oxygen -ABG is normal with hypoxia (2) Hypertension: Code(s): I10 - Essential (primary) hypertension Status: Acute Assessment and Plan: -current blood pressure 132/70 -continue with lisinopril -Trend blood pressure -adjust therapy as indicated -Remains stable (3) Dyslipidemia: Code(s): E78.5 - Hyperlipidemia, unspecified Status: Acute Assessment and Plan: -continue with atorvastatin (4) Fibromyalgia: Code(s): M79.7 - Fibromyalgia Status: Acute Assessment and Plan: -continue with gabapentin, and tizanidine (5) Anxiety and depression: Code(s): F41.9 - Anxiety disorder, unspecified; F32.A - Depression, unspecified Status: Acute Assessment and Plan: -continue with clonazepam (6) Osteoarthritis: Code(s): M19.90 - Unspecified osteoarthritis, unspecified site Status: Acute Assessment and Plan: -continue with Mobic (7) Fall: Code(s): W19.XXXA - Unspecified fall, initial encounter Status: Acute Assessment and Plan: Reported fall overnight Complaints of right knee pain X-ray indicated right joint effusion that is very minimal PT/OT ordered Care coordination for placement (8) Urinary tract infection: Code(s): N39.0 - Urinary tract infection, site not specified Status: Acute Assessment and Plan: UA does appear infectious urine culture found to contamination patient does have symptoms continue to treat with ceftriaxone, changed to p.o. when able to discharge UA with culture recollected, but does not appear infectious (9) SHERI (acute kidney injury): Code(s): N17.9 - Acute kidney failure, unspecified Status: Acute Assessment and Plan: BUN/CR back to baseline Creatine currently 0.90 Baseline appears to be about 1.0 1 L of fluid given Continue to trend labs Urine studies indicate hypovolemia Plan Gave guaifenesin syrup for cough DS: Summary Hospital Course Hospital Course: Patient is a 72-year-old female with a past medical history of hypertension, fibromyalgia, hyperlipidemia, anxiety depression who presented to the ED with complaints generalized weakness and shortness of breath. Prior to arrival patient has been weak for a few days. She was having difficulty getting around her house. Chest x-ray showed patchy bilateral airspace disease compatible with pneumonia. At that time patient was started on ceftriaxone and azithromycin. Blood culture show no growth to date sputum culture was unable to be performed due to quality. Patient was also complaining of urination problems including urgency and frequency however UA did not indicate any infection it it indicated a contamination. Patient is being treated with antibiotics empirically. Through the course patient was doing okay however patient did have a fall and the next day ended up on supplemental oxygen due to saturation low 80s. Oxygen has been able to be weaned down and patient has been doing well since. Patient was also
== END 2022-09-03 13:15 | disposition home health service (06) | DRG 194 ==
LOC: ANHED 18:54 → ANH3MEDSUR 19:50
PROVIDERS: Nurse Practitioner; Physician Assistant; Admitting Provider Hospitalist; Emergency Provider Emergency Medicine; PCP Internal Medicine; Visit Provider Nurse Practitioner
DX: J18.9 Pneumonia, unspecified organism (principal); N17.9 Acute kidney failure, unspecified; R39.15 Urgency of urination; R35.0 Frequency of micturition; W19.XXXA Unspecified fall, initial encounter; Z20.822 Contact with and (suspected) exposure to COVID-19; I10 Essential (primary) hypertension; E78.5 Hyperlipidemia, unspecified; M79.7 Fibromyalgia; M19.90 Unspecified osteoarthritis, unspecified site; F41.8 Other specified anxiety disorders; F90.9 Attention-deficit hyperactivity disorder, unspecified type; E66.9 Obesity, unspecified; K21.9 Gastro-esophageal reflux disease without esophagitis; Z68.32 Body mass index [BMI] 32.0-32.9, adult; Z90.49 Acquired absence of other specified parts of digestive tract
CPT/HCPCS: 36415; 36600; 71045; 71046; 73562; 80053; 81001; 82375; 82570; 82805; 83050; 83605; 83735; 83880; 84300; 84484; 84540; 85025; 85380; 87040; 87070; 87086; 87088; 87205; 93005; 94640; 96361; 96366; 96372; 96374; 96375; 97110; 97116; 97161; 97165; 97530; 97535; 99285; A9270; C9803; G0378; J0456; J0696; J1650; J7030; J7040; U0003; U0005

== ENCOUNTER 2023-11-11 00:53 | Emergency (ER) | payer MEDICARE, MEDICAID, SELFPAY ==
--- NOTE | ~2023-11-11 | CT_ITS ---
CT of the Abdomen and Pelvis: Indication: Abdominal pain Technique: 2.5 mm axial scans were obtained through the abdomen and pelvis following intravenous adm inistration of 100 cc of Omnipaque 350. Dose reduction technique was used on this scan by utilizing a utomated exposure control and iterative reconstruction technique. The dose-length product (DLP) was 7 46.13 mGy-cm. COMPARISON: 11/26/2021 Findings: Scans through the lung bases demonstrate moderate hiatal hernia. Gallbladder is absent, and there is pneumobilia. The liver, spleen, pancreas, adrenals and kidneys ar e otherwise within normal limits. No evidence of aortic aneurysm. No lymphadenopathy. No bowel obstruction or bowel wall thickening. There is no evidence to suggest acute appendicitis. Images through the pelvis were performed. Urinary bladder unremarkable. Patient is post hysterectomy. No pelvic mass identified. No ascites. Impression: Moderate hiatal hernia. Pneumobilia, status post cholecystectomy. Reviewed, dictated and finalized at [facility]. 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 Pneumobilia, status post cholecystectomy.
[2023-11-11 00:57] VITALS: BP 150/90; PULSE 93; RESP 20; TEMP 36.2; O2SAT 97
--- NOTE | 2023-11-11 02:09 | ECG_ITS ---
Measurements Intervals [place] Rate: 89 P: 29 MN: 149 QRS: -16 QRSD: 78 T: 48 QT: 352 QTc: 429 Interpretive Statements SINUS RHYTHM NONSPECIFIC ST ABNORMALITY BORDERLINE ECG COMPARED TO ECG 08/29/2022 16:00:52 ST (T WAVE) DEVIATION NOW PRESENT Electronically Signed On 11-11-2023 17:11:47 MARINE ENGINEERING PROFESSOR by Oz Segura M.D.
[2023-11-11] MEDS: PROCHLORPERAZINE EDISYLATE 10 MG/2 ML VIAL IV PUSH (02:41)
[2023-11-11] MEDS: SODIUM CHLORIDE 0.9% IV 1,000 ML 999 ML IV CONT (02:41)
[2023-11-11] MEDS: DICYCLOMINE HCL INJ 20 MG/2 ML VIAL IM (02:42)
[2023-11-11 02:51] VITALS: BP 156/83; PULSE 78; RESP 15; O2SAT 97
[2023-11-11 03:02] VITALS: BP 172/79; PULSE 84; RESP 16; O2SAT 97
[2023-11-11 03:41] LABS: Basophils Percent Auto 0.3 % (0.2-1.2); Hematocrit 48.9 % (37.0-47.0); Hemoglobin 15.3 g/dL (12.0-15.0); Immature Granulocyte Absolute 0.18 K/mm3 (0.00-0.031); Immature Granulocyte Percent A 1.4 % (0-0.5); Lymphocytes Absolute Auto 0.64 K/mm3 (0.9-3.2); Lymphocytes Percent Auto 4.8 % (18.3-44.2); Mean Corpuscular HGB Conc 31.3 g/dl (32-36); Mean Corpuscular Hemoglobin 28.4 pg (26-34); Mean Corpuscular Volume 90.9 fl (80-100); Mean Platelet Volume 10.9 fl (7.4-10.4); Monocytes Absolute Auto 0.8 K/mm3 (0.1-0.6); Monocytes Percent Auto 6.3 % (2.6-8.5); Neutrophils Absolute Auto 11.6 K/mm3 (1.3-6.7); Neutrophils Percent Auto 87.2 % (45.5-73.1); Platelet Count Result 194 k/mm3 (150-375); Red Blood Count 5.38 M/mm3 (4.2-5.4); Red Cell Distribution Width 13.3 % (11.5-14.5); White Blood Count 13.3 K/mm3 (4.5-10.0)
[2023-11-11 03:48] LABS: Appearance Urine Clear (Clear); Bacteria Urine None Seen /hpf; Bilirubin Urine Negative (Negative); Blood Urine Negative (Negative); Color Urine Yellow (Yellow); Glucose Urine UA Negative (Negative); Ketones Urine Negative (Negative); Leukocyte Esterase Ur Negative LEU/UL (Negative); Nitrate Urine Negative (Negative); Non Pathogenic Casts 0-2; Protein Urine Trace mg/dL (Negative); RBC Urine 0-2 /hpf (0-2); Specific Grav Ur 1.027 (1.001-1.035); Squamous Epithelial Cell Urine None seen /hpf (Few); Urobilinogen Urine 0.2 mg/dL (<2.0); WBC Urine 0-5 /hpf
[2023-11-11 03:52] LABS: Alanine Aminotransferase 31 U/L (6-35); Albumin Level 4.5 g/dL (3.5-5.1); Alkaline Phosphatase 103 U/L (38-126); Anion Gap 12 mmol/L (8-16); Aspartate Amino Transferase 77 U/L (14-36); Bilirubin,Total 1.3 mg/dL (0.2-1.3); Blood Urea Nitrogen 27 mg/dL (7-17); Calcium 9.3 mg/dL (8.4-10.2); Carbon Dioxide 23 mmol/L (22-30); Chloride 109 mmol/L (98-107); Estimated CRCL calculation 44 ml/min; Estimated Glomerular Filt Rate 54; Glucose 182 mg/dL (65-110); Lactic Acid Reflex 1.9 mmol/L (0.7-2.0); Lipase 303 U/L (23-300); Magnesium 2.3 mg/dL (1.6-2.3); Sodium 144 mmol/L (137-145)
[2023-11-11 04:03] LABS: Troponin I < 0.012 ng/mL (0.000-0.034)
[2023-11-11 04:13] LABS: Anisocytosis 1+ (NORMAL); Platelet Clumps Present; Platelet Estimate Adequate (Adequate); Poikilocytosis 1+ (NORMAL); Schistocytes None Seen (NORMAL)
[2023-11-11 04:30] VITALS: BP 162/79; PULSE 79; RESP 20; O2SAT 96
[2023-11-11 04:34] LABS: Add Urine Microscopic? YES
--- NOTE | 2023-11-11 04:34 | ED.GENADULT ---
HPI - General Adult General Chief complaint: Nausea/Vomiting/Diarrhea Stated complaint: N/V/D Time Seen by Provider: 11/11/23 02:00 History of Present Illness HPI narrative: patient is 73-year-old female who presents to emergency department with chief complaint of nausea vomiting diarrhea. The patient reports that around 7:00 p.m. she started having vomiting and has had diarrhea. The patient reports he has had multiple loose stools and reports that she has had multiple bouts of vomiting. The patient reports she has cramping throughout her abdomen patient denies fever reports she has been on antibiotics recently. Related Data Home Medications Medication Instructions Recorded Confirmed atorvastatin 10 mg tablet 10 mg PO DAILY 04/20/22 08/30/22 clonazepam 1 mg tablet 1 mg PO QPM 04/20/22 08/30/22 dextroamphetamine-amphetamine 12.5 12.5 mg PO BID 04/20/22 08/30/22 mg tablet doxepin 100 mg capsule 50 mg PO QPM 04/20/22 08/30/22 gabapentin 300 mg capsule 600 mg PO HS 04/20/22 08/30/22 lisinopril 20 mg tablet 20 mg PO DAILY 04/20/22 08/30/22 meloxicam 15 mg tablet 15 mg PO DAILY 04/20/22 08/30/22 rabeprazole 20 mg tablet,delayed 20 tablet PO DAILY 04/20/22 08/30/22 release risperidone 0.25 mg tablet 0.25 mg PO QPM 04/20/22 08/30/22 tizanidine 2 mg tablet 4 mg PO HS PRN Muscle Spasm 04/20/22 08/30/22 Allergies Allergy/AdvReac Type Severity Reaction Status Date / Time aripiprazole Allergy Mild Unknown Verified 08/29/22 20:59 pregabalin Allergy Mild Unknown Verified 08/29/22 20:59 cimetidine Allergy Unknown Unknown Verified 08/29/22 20:59 lansoprazole Allergy Unknown Unknown Verified 08/29/22 20:59 omeprazole Allergy Unknown Unknown Verified 08/29/22 20:59 pantoprazole Allergy Unknown Unknown Verified 08/29/22 20:59 ranitidine Allergy Unknown Unknown Verified 08/29/22 20:59 diphenhydramine AdvReac Mild Other Verified 08/29/22 20:59 nitrofurantoin AdvReac Mild Unknown Verified 08/29/22 20:59 oxybutynin AdvReac Unknown Verified 08/29/22 20:59 Review of Systems Review of Systems: A 10 system review of systems was completed on the patient and is negative except for what is stated in the HPI. Nursing and ancillary documentation was reviewed. PMFSH Past Medical History Medical History ADHD Anxiety and depression Bursitis Dyslipidemia Fall Fibromyalgia Gastroesophageal reflux Hypertension Osteoarthritis Surgical History Surgical History History of appendectomy History of bilateral carpal tunnel release History of cholecystectomy History of partial hysterectomy Hx of rectal polypectomy Family History Family History Sibling Cerebrovascular accident Sibling Cerebrovascular accident Mother Diabetes mellitus Social History Social History Social History: The patient only smoked for brief period of time. She quit at the age of 24. She is and has 3 children. She is retired from [employer]. Her daughter is the durable power tax associate attorney for healthcare. The patient does not use any alcohol marijuana or illicit drugs. Code status full code Smoking packs per day: 3 Smoking cigarettes per day: 60.0 Years smoked: 10 Smoking pack-years: 30.00 Smoking status: Never smoker Second hand tobacco smoke exposure: No Alcohol intake: never Substance use: never Substance use type: does not use Spiritual care concerns: No Exam Narrative: GENERAL: Well-appearing, well-nourished, and in no acute distress. HEAD: Normocephalic, atraumatic. EYES: PERRLA and EOMI. ENT: Nares clear, no rhinorrhea or epistaxis. Mucous membranes moist. NECK: Supple. CHEST: Clear to auscultation. No respiratory distress. HEART: Regular rate and rhythm. No mur
[2023-11-11 05:01] VITALS: BP 148/87; PULSE 87; RESP 19; O2SAT 95
--- NOTE | 2023-11-11 07:11 | PC.NURSE ---
JUAN Christian to d/c pt after PO challenge.
[2023-11-11 07:30] LABS: Toxigenic C. Diff NEGATIVE (NEGATIVE)
[2023-11-11 07:56] VITALS: BP 169/89; PULSE 74; RESP 18; O2SAT 96
== END 2023-11-11 07:58 | disposition home or self-care (01) ==
PROVIDERS: Emergency Provider Emergency Medicine; PCP Internal Medicine
DX: K52.9 Noninfective gastroenteritis and colitis, unspecified (principal); E78.5 Hyperlipidemia, unspecified; K21.9 Gastro-esophageal reflux disease without esophagitis; I10 Essential (primary) hypertension
CPT/HCPCS: 36415; 74177; 80053; 81001; 83605; 83690; 83735; 84484; 85025; 87493; 93005; 96361; 96372; 96374; 99284; J0500; J0780; J7030; Q9967